=== PATIENT | female | born 1955 | race Caucasian/White ===

== ENCOUNTER 2016-12-05 23:47 | Inpatient (IN) ==
--- NOTE | 2016-12-06 00:58 | Emergency Department Note ---
Simon Wilkinson Manpreet, am scribing for, and in the presence of, Santy Arechiga MD 00:25 . Geni Wilkinson Hans, MD, personally performed the services described in this documentation, ascribed by Mauro Montes in my presence, and it is both accurate and complete . Arrival - Arrival Chief Complaint: Weakness ED Nursing Triage Note: Pt arrives via ems from [facility] for further eval of elevated labs and weakness since her heart cath on Wednesday. Pt states that she just has not been feeling well and has not been eating since she was sent home. Pt denies any pain at time of triage. Mode of Arrival: Stretcher Limitations: No Limitations Source: Patient Time Seen by Provider: 12/06/16 00:07 - History of Present Illness HPI Narrative: Pt is a 61 y/o female, with PMHx of HTN, CHF, CAD, TIA, and NIDDM, who is transferred from [facility] for further evaluation of weakness. Pt states she has not been feeling well recently. Pt also c/o lower Abd pain. Pt states she was told 10% of her kidneys were not working. Pt denies any N/V/D or any EtOH use. Pt reports of taking 4 tablets of ASA because she was not feeling well and increased urinary frequency. No other pains/complaints reported to the ED. Onset (ago): day(s) (12/02/16) Consistency: constant Severity: moderate Date of Last Menstrual Period: pm Allergies/Adverse Reactions: Allergies Allergy/AdvReac Type Severity Reaction Status Date / Time codeine AdvReac Vomiting Verified 10/25/14 13:16 diazepam [From Valium] AdvReac Unknown/Unable Verified 10/25/14 13:16 to obtain Home Medications: Home Medications Medication Instructions Recorded Confirmed Type Aspirin [Ecotrin] 81 mg PO DAILY 10/25/14 12/06/16 History Gabapentin 300 mg PO BID 12/28/15 12/06/16 History Cyanocobalamin (Vitamin B-12) 1 each PO DAILY 12/29/15 12/06/16 History [B-12] Atorvastatin [Lipitor] 80 mg PO BEDTIME #30 tablet 01/02/16 12/06/16 Rx Carvedilol [Coreg] 12.5 mg PO BID #60 tablet 01/02/16 12/06/16 Rx Clopidogrel [Plavix] 75 mg PO DAILY #30 tablet 01/02/16 12/06/16 Rx Metformin HCl 1,000 mg PO BID #0 01/02/16 12/06/16 Rx Amlodipine Besylate 10 mg PO DAILY 02/16/16 12/06/16 History Furosemide Tab [Lasix Tab] 80 mg PO DAILY 02/16/16 12/06/16 History Ipratropium Inhaler [Atrovent 2 puff INH QID PRN 02/16/16 12/06/16 History Inhaler] Lisinopril [Prinivil] 10 mg PO BID #60 tablet 02/20/16 12/06/16 Rx Albuterol Sulfate [Ventolin HFA] 2 puff INH Q4H PRN 12/02/16 12/06/16 History Benzonatate 100 mg PO TID PRN 12/02/16 12/06/16 History Budesonide/Formoterol 160-4.5 2 puff INH BID 12/02/16 12/06/16 History [Symbicort 160-4.5] Escitalopram [Lexapro] 10 mg PO DAILY 12/02/16 12/06/16 History Ipratropium Inhaler [Atrovent 2 puff INH Q6HR 12/02/16 12/06/16 History Inhaler] Metoprolol Tartrate 25 mg PO DAILY 12/02/16 12/06/16 History NIFEdipine [Nifedipine ER] 30 mg PO DAILY 12/02/16 12/06/16 History hydrALAZINE TAB [Apresoline Tab] 25 mg PO BID 12/02/16 12/06/16 History Review of System - Review of System 12 point system: reviewed and no additional remarkable complaints except as stated - Review of System Constitutional: Present: weakness, other ("Not feeling well"). Absent: chills, diaphoresis, fever Respiratory: Absent: cough, respiratory distress, wheezing Cardiovascular: Absent: chest pain, palpitations, dyspnea on exertion Gastrointestinal: Present: abdominal pain. Absent: nausea, vomiting Genitourinary female: Present: frequency. Absent: dysuria Musculoskeletal: Absent: arm pain, back pain Neurological: Present: weakness. Absent: headache, numbness, paresthesias Medical,Surgical,& Family Hx - Medical History Cardio: History of: CHF, CAD (previous stents to dLAD, mLAD, LCx/OM1 by Dr. Mat Wu.), Hypertension Psychological: History of: Depression Neurology: History of: TIA (PT STATES HAD "MINI STROKE"), Vertigo No history of: Seizures HEENT: History of: Eye Problem (left eye "runny") Endocrine: History of: Diabetes Mellitus (NIDDM) Respiratory: History of: Respiratory Problems (family states "has problems catching her breath") Gastrointestinal: History of: GI Problems (TAKES SIMETHICONE 125MG BID) - Surgical History Cardiac Surgeries: Sugical HX of: Cardiac Catheterization (stents placed) Thoracic Surgeries: Patient denies;: Lobectomy Neurologic Surgeries: Patient denies: Neurologic Surgery HEENT Surgeries: Surgical HX of: Eye Surgery (CATARACTS), Tonsilectomy & Adenoidectomy Abdominal Surgeries: Patient denies: Abdominal Surgery Reproductive Surgeries: Surgical HX of;: Section (Xs 2), Gynecologic Surgery, Hysterectomy Patient denies;: Genitourinary Surgery - Family History Family History: Reports;: Family Stroke (grandfather) - Social History Smoking Status: Unknown if ever smoked Frequency of Alcohol Use: None Type of Drug Use: None Exam Vital Signs: Vital Signs Temperature 98.9 F 12/05/16 23:47 Pulse Rate 59 L 12/05/16 23:47 Respiratory Rate 21 12/05/16 23:47 Blood Pressure 82/54 12/05/16 23:47 O2 Sat by Pulse Oximetry 91 L 12/05/16 23:47 - General General appearance: alert, in no apparent distress - Head Head exam: Present: atraumatic, normocephalic, normal inspection - Eye Eye exam: Present: normal appearance, PERRL, EOMI - ENT ENT exam: Present: normal exam, normal oropharynx, mucous membranes moist, TM's normal bilaterally - Neck Neck exam: Present: normal inspection, full ROM, trachea midline - Chest Chest inspection: Present: normal inspection, symmetric chest wall rise. Absent : tenderness - Respiratory Respiratory exam: Present: normal lung sounds bilaterally, wheezes. Absent: respiratory distress - Cardiovascular Cardiovascular exam: Present: regular rate, normal rhythm, normal heart sounds. Absent: murmur, rubs - Abdominal Exam Abdominal exam: Present: soft, tenderness (RUQ tenderness), normal bowel sounds , other (Abdominal brusing) - Extremities Exam Extremities exam: Present: normal inspection, full ROM. Absent: tenderness - Back Exam Back exam: Present: normal inspection, full ROM. Absent: tenderness - Neurological Exam Neurological exam: Present: alert, oriented X3, CN II-XII intact, reflexes normal - Psychiatric Psychiatric exam: Present: normal affect, normal mood - Skin Skin exam: Present: warm, dry, intact, normal color. Absent: pallor Course Course Narrative: This patient was evaluated with clinical exam and review of her outside hospital records. She has evidence of renal failure with creatinine 7.5 and potassium of 5.9. We ordered a repeat potassium here and also a Tylenol level given her history of Tylenol use and her elevated transaminases. A Dias catheter was placed in the ER. I discussed her care with the hospitalist on- call who agreed to come and see her for admission. Disposition Clinical Impression: Renal failure Case discussed with: patient Disposition: Still a Patient Condition: Stable Time of Disposition: 00:58
[2016-12-06] MEDS ORDERED: GLUCAGON 1 MG VIAL IM PRN (01:50)
[2016-12-06] MEDS ORDERED: DEXTROSE 50% 25 GM/50 ML SYRINGE IV PRN (01:50)
[2016-12-06] MEDS ORDERED: SODIUM CHLORIDE 0.9% 1,000 ML IV SCH (02:00)
[2016-12-06 02:01] LABS: Apearance,Urine CLOUDY (Clear); Bacteria,Urine Few /HPF (Few); Bilirubin,Urine Negative (Negative); Blood, Urine Negative (Negative); Glucose,Urine (UA) 50 mg/dL (Negative); Ketones,Urine Negative (Negative); Nitrite,Urine Negative (Negative); Protein,Urine 30 MG/DL; RBC,Urine 4 /HPF (0-4); Urine Color Amber (Yellow); Urine Specific Gravity 1.038 (1.001-1.035); Urine Urobilinogen < 2.0 EU/DL (0.2-1.0); WBC,Urine 2 /HPF (0-6)
[2016-12-06] MEDS ORDERED: ALBUTEROL/IPRATROPIUM 3 ML NEB RESP TX PRN (02:06)
[2016-12-06] MEDS ORDERED: SODIUM POLYSTYRENE SULFATE 15 GM/60 ML BOTTLE PO STA (02:07)
[2016-12-06] MEDS ORDERED: ONDANSETRON 4 MG/2 ML VIAL ONE (02:12)
[2016-12-06] MEDS ORDERED: MORPHINE 2 MG/1 ML SYRINGE ONE (02:12)
[2016-12-06] MEDS ORDERED: KETOROLAC 30 MG/1 ML VIAL ONE (02:12)
--- NOTE | 2016-12-06 02:39 | Hospitalist History & Physical ---
<Kitty Elena - Last Filed: 12/06/16 02:13> Assessment and Plan - Time spent with patient Time spent with patient: Greater than 30 minutes (1) Acute renal failure Status: Acute Assessment and plan: Admit to hospitalist services. Consult Nephrology. Consult Cardiology. NS at 125 ml/hr x 1L. Renal US. Urine osmolality, creatinine, eosinophil, urea and sodium. Recheck CMP in AM. Hold metformin and BP meds. Current Visit: Yes (2) Hyperkalemia Status: Acute Assessment and plan: Consult Nephrology. Consult Cardiology. Monitored Bed. EKG. Kayexalate 15 gm PO x 1 dose. Recheck CMP in AM. Current Visit: Yes (3) Elevated liver enzymes Status: Acute Assessment and plan: ALT 769. AST 377. CT shows "subtle nodular contour of the liver." Consult GI. Hepatitis panel. RUQ ultrasound. Ammonia level. Recheck CMP in AM. Current Visit: Yes (4) COPD (chronic obstructive pulmonary disease) Status: Acute Assessment and plan: Currently c/o shortness off breath. CXR. O2 per unit protocol. DuoNebs q4 hours. Restart home dose Symbicort. Current Visit: Yes (5) Diabetes mellitus Status: Chronic Assessment and plan: Diabetic diet. Accuchecks ACHS. Low dose SSI ACHS. Hold metformin. Recheck CMP in AM. Current Visit: No Qualifiers: Diabetes mellitus type: type 2 Diabetes mellitus complication status: without complication Diabetes mellitus intermodal dispatcher insulin use: without intermodal dispatcher use Qualified Code(s): E11.9 - Type 2 diabetes mellitus without complications (6) Hypertension Status: Chronic Assessment and plan: BP stable for now. Hold home BP meds. Continue to monitor. Current Visit: No Qualifiers: Hypertension type: essential hypertension Qualified Code(s): I10 - Essential (primary) hypertension (7) Diarrhea Status: Acute Assessment and plan: Stool culture, c-diff and leukocytes. Current Visit: Yes (8) Anemia Status: Acute Assessment and plan: Occult blood stool. Check iron, TIBC, ferritin, folate and B-12. Recheck CBC in AM. Current Visit: Yes (9) Shortness of breath Status: Chronic Assessment and plan: Treatment as above for COPD. Unable to perform chest CT for PE due to acute renal failure. Venous stasis discoloration of left lower extremity noted. Obtain BLE venous duplex to check for DVTs. Current Visit: No (10) History of coronary artery stent placement Status: Acute Assessment and plan: Consult cardiology. Continue ASA and Plavix. Current Visit: Yes (11) DVT prophylaxis Status: Acute Assessment and plan: Heparin 500 SQ every 8 hours. Current Visit: Yes History of Present Illness Chief complaint: Acute Renal Failure History of present illness: Ms. Quintana is a 61 year old female with a history of FL with stent placement , HTN, DM, CHF and COPD who was transferred from [facility] for acute renal failure. Ms. Quintana originally presented to [facility] with complaints of low back/pelvic pain and shortness of breath. Her work-up there was significant for ceatinine of 7.5, ALT of 769, AST of 377, hematocrit and hemoglobin of 29.8 and 8.9 respectively, Na of 130, K of 5.9, and WBC of 11.2. Previous labs performed on 03/04/16 showed a creatinine of 1.7. CT abd/pelvis wo contrast showed "Partial image cardiomegaly, trace pericardial effusion, pleural effusion , ascites, and diffuse subcutaneous infiltration. Passive atelectasis versus consolidation at right and left lower lobe adjacent to pleural effusions. Subtle nodular contour of the liver suggested...Likely retained renal cortical contrast with minimal intravascular contrast. Radiodense material within the gall bladder lumen, may represent vicarious excretion of contrast shows sludge, less likely discrete cholelithiasis. No ductal dilation..." Ms. Quintana is 4 days s/p cardiac catheterization and 3 days s/p CT of BLEs with contrast. She admits to not drinking much since the CT scan though she was instructed to do so. She is currently awake, alert and oriented and breathing more at ease while on oxygen, which she wears PRN at home. Her only discomfort at this time is due to placement of a urinary catheter. Hospitalist services were consulted, and the patient will be admitted to a monitored bed for further evaluation and management. Home Medications Medication Instructions Recorded Confirmed Type Aspirin [Ecotrin] 81 mg PO DAILY 10/25/14 12/06/16 History Gabapentin 300 mg PO BID 12/28/15 12/06/16 History Cyanocobalamin (Vitamin B-12) 1 each PO DAILY 12/29/15 12/06/16 History [B-12] Atorvastatin [Lipitor] 80 mg PO BEDTIME #30 tablet 01/02/16 12/06/16 Rx Carvedilol [Coreg] 12.5 mg PO BID #60 tablet 01/02/16 12/06/16 Rx Clopidogrel [Plavix] 75 mg PO DAILY #30 tablet 01/02/16 12/06/16 Rx Metformin HCl 1,000 mg PO BID #0 01/02/16 12/06/16 Rx Amlodipine Besylate 10 mg PO DAILY 02/16/16 12/06/16 History Furosemide Tab [Lasix Tab] 80 mg PO DAILY 02/16/16 12/06/16 History Ipratropium Inhaler [Atrovent 2 puff INH QID PRN 02/16/16 12/06/16 History Inhaler] Lisinopril [Prinivil] 10 mg PO BID #60 tablet 02/20/16 12/06/16 Rx Albuterol Sulfate [Ventolin HFA] 2 puff INH Q4H PRN 12/02/16 12/06/16 History Benzonatate 100 mg PO TID PRN 12/02/16 12/06/16 History Budesonide/Formoterol 160-4.5 2 puff INH BID 12/02/16 12/06/16 History [Symbicort 160-4.5] Escitalopram [Lexapro] 10 mg PO DAILY 12/02/16 12/06/16 History Ipratropium Inhaler [Atrovent 2 puff INH Q6HR 12/02/16 12/06/16 History Inhaler] Metoprolol Tartrate 25 mg PO DAILY 12/02/16 12/06/16 History NIFEdipine [Nifedipine ER] 30 mg PO DAILY 12/02/16 12/06/16 History hydrALAZINE TAB [Apresoline Tab] 25 mg PO BID 12/02/16 12/06/16 History Allergies Allergy/AdvReac Type Severity Reaction Status Date / Time codeine AdvReac Vomiting Verified 10/25/14 13:16 diazepam [From Valium] AdvReac Unknown/Unable Verified 10/25/14 13:16 to obtain Medical,Surgical,& Family Hx - Medical History Cardio: History of: CHF, CAD (previous stents to dLAD, mLAD, LCx/OM1 by Dr. Mat Wu.), Hypertension, [place] Psychological: History of: Depression Neurology: History of: TIA (PT STATES HAD "MINI STROKE"), Vertigo No history of: Seizures HEENT: History of: Eye Problem (left eye "runny") Endocrine: History of: Diabetes Mellitus (NIDDM) Respiratory: History of: COPD, Respiratory Problems (family states "has problems catching her breath") Gastrointestinal: History of: GI Problems (TAKES SIMETHICONE 125MG BID) - Surgical History Cardiac Surgeries: Sugical HX of: Cardiac Catheterization (stents placed) Thoracic Surgeries: Patient denies;: Lobectomy Neurologic Surgeries: Patient denies: Neurologic Surgery HEENT Surgeries: Surgical HX of: Eye Surgery (CATARACTS), Tonsilectomy & Adenoidectomy Abdominal Surgeries: Patient denies: Abdominal Surgery Reproductive Surgeries: Surgical HX of;: Section (Xs 2), Gynecologic Surgery, Hysterectomy Patient denies;: Genitourinary Surgery - Family History Family History: Reports;: Family Stroke (grandfather) - Social History Smoking Status: Former smoker (quit 1 year ago) Frequency of Alcohol Use: None Type of Drug Use: None Marital Status: Lives With:: Roommate Functional capacity: independent ambulation 12 point system: reviewed and no additional remarkable complaints except as stated - Constitutional Constitutional: Absent: chills, fever(s), lethargy, malaise, weakness - EENT Eyes: Absent: blurry vision, diplopia, loss of vision Ears: Absent: decreased hearing, ear discharge, ear pain Nose, mouth and throat: Absent: headache(s), nasal congestion, sore throat - Cardiovascular Cardiovascular: Present: dyspnea, edema. Absent: chest pain at rest, chest pain with activity, orthopnea, palpitations - Respiratory Respiratory: Present: dyspnea. Absent: cough, wheezing - Gastrointestinal Gastrointestinal: Present: diarrhea. Absent: nausea, vomiting - Genitourinary Genitourinary: Absent: dysuria, urinary frequency - Musculoskeletal Musculoskeletal: Present: back pain. Absent: muscle weakness, myalgias - Neurological Neurological: Absent: dizziness, numbness, paresthesias, syncope - Psychiatric Psychiatric: Absent: anxiety, depression - Endocrine Endocrine: Absent: cold intolerance, polydipsia, polyphagia, polyuria - Hematologic/Lymphatic Hematologic/Lymphatic: Absent: easy bleeding, easy bruising Exam - Constitutional Vitals: Period Temp Pulse Resp BP Sys/Quach Pulse Ox Last 24 Hr 98.4 F-98.9 F 54-59 18-21 82-82/54-54 91 General appearance: mild distress - Head Head exam: Present: normocephalic, atraumatic - Eye Eye exam: Present: EOMI Pupils: Present: MARY JANE - ENT ENT exam: Present: normal external ear exam - Neck Neck exam: Present: normal inspection. Absent: lymphadenopathy - Respiratory Respiratory exam: Present: clear to auscultation bilaterally - Cardiovascular Cardiovascular exam: Present: bradycardia. Absent: diastolic murmur, gallop, systolic murmur - GI/Abdominal GI/Abdominal exam: Present: normal bowel sounds, distended, soft. Absent: guarding, tenderness, rebound - Extremities Exam Extremities exam: Present: other (Hyperpigmentation of left lower leg and ankle. ) - Back Exam Back exam: Present: normal inspection - Neurological Exam Neurological exam: Present: alert, oriented X3, CN II-XII intact (grossly) - Psychiatric Psychiatric exam: Present: normal affect, normal mood - Skin Skin exam: Present: warm, dry, other (Hyperpigmentation of left lower leg and ankle. ) Results - Labs CBC & BMP: 12/06/16 00:45 Lab Results: I have reviewed the past 24 hour labs <Brody Gutierrez - Last Filed: 12/06/16 07:22> History of Present Illness History of present illness: Ms. Quintana is a 61 year old female Exam - Constitutional Vitals: Period Temp Pulse Resp BP Sys/Quach Pulse Ox Last 24 Hr 97.5 F-98.9 F 54-84 18-22 82-127/54-64 91-98 Results - Labs CBC & BMP: 12/06/16 06:20 12/06/16 06:20 - Impressions Agree with documentation. Please see event note for my H&P information.
--- NOTE | 2016-12-06 02:41 | Event Note ---
Patient seen and examined. Please see H&P for additional details. Briefly, patient is a 61 yo female who presents from [facility] for weakness and decreased oral intake since her cardiac catherization on 12/02/16. She also had a CTA with bilateral LE runoff on 12/03/16. Her creatinine at that time was 1.10. Currently , it is 7.5. She has been having some lower abdominal pain for the past day. Her UOP has been decreased since the heart procedure and CT angiogram. She notes some nausea but denies any vomiting as well as dysuria. She has been having some diarrhea along with subjective fevers but no chills. She has been taking doxycycline for the past few days for a tick bite. She denies any metallic oral taste/SOB/CP/cough/wheezing. Vitals reviewed. O2 saturations are 91-94% on 4L. HRs are in the mid to upper 50s. Patient is lethargic (it was reported she received morphine and zofran at outside facility) but she is completely oriented. Cardiopulmonary exam is significant for unlabored respirations, decreased breath sounds at the bases, otherwise, clear lung sounds, and heart is bradycardic. She has no LE swelling or asterixis. Abdomen is obese, soft with positive bowel sounds, non distended , and non tender. Labs from [facility] reviewed. CTAP (without contrast) report from [facility] reviewed as well. Active Issues: 1. Acute on CKD: creatinine on 12/02/16 was 1.1. At [facility], it is 7.5. Culprits include recent contrast from [facility] and CT angiogram, lisinopril/aldactone/lasix use, decreased oral intake and diarrhea. She is also on doxycycline, and although it is not known for causing AIN, will go ahead and check for urine eosinophils. Will also obtain renal ultrasound, obtain urine lytes to calculate FeUrea (on lasix). Start gentle IVFs with close monitoring of volume and respiratory status. Consult nephrology. 2. ASCAD s/p prior stent placements to LAD and left circumflex. Recent LHC on for FUNG and abnormal stress test. Will consult cardiology. Obtain EKG. Continue asa and plavix. 3. Bradycardia: Mild. could be 2nd to coreg or hyperkalemia although mild. Treat hyperkalemia. Check TSH and magnesium. Monitor bradycardia. 4. Transaminitis: Patient with elevated LFTs on labs from [facility]. Ascites was reported on imaging. Will repeat LFTs, check abdominal ultrasound, and consult GI. Hold statin therapy. 5. Diarrhea: will check for c. diff given antibiotic use. 6. Hypoxia: Patient with history of tobacco use. She used to smoke at least 1ppd x 40 years and quit one year ago. Suspect hypoxia 2nd to COPD and heart failure. Curent chest x-ray showed enlarged heart with bilateral effusions, L>R along with pulmonary vascular congestion and cephalization. Continue oxygen/ bronchodilator/inhaled steord therapy. Follow recommedations by cardiology. May need pulmonary consult. Will check LE dopplers for DVTs. 7. Suspected KOBY: patient states that she was referred to sleep medicine but was unable to afford it. Will seek assistance from case management. 8. Anemia: baseline HCT is 31-36. HCT on 10/19 was 29. Per notes, EGD/colo normal. Will start with basic lab workup. 9. Comorbid conditions: h/o DM (hba1c: 7.6, 12/19), dyslipidemia, ASCAD, TIA, HTN , CHF (Echo: 11/19: EF: 55%, LVH), obesity, PVD: will hold metformin,statin, bp agents. Continue rest of home medications. DVT prophalaxis. The plan of care may be modified as more information becomes available.
[2016-12-06 03:16] LABS: Creatinine,Urine Random 134 MG/DL
[2016-12-06 05:51] LABS: Osmolality,Urine 311 MOSM/KG (50-1400)
[2016-12-06 06:32] LABS: Basophils # 0.1 10*3/uL (0.0-0.2); Basophils % 0.6 % (0.0-0.8); Eosinophils # 0.1 10*3/uL (0.0-0.87); Eosinophils % 0.6 % (0.00-10.9); Hematocrit 30.9 VOL% (35.7-47.0); Hemoglobin 9.2 GM/DL (12.0-16.0); Immature Granulocytes % 0.8 %; Immature Granulocytes Absolute 0.08 #; Lymphocytes # 1.5 10*3/uL (1.4-4.0); Lymphocytes % 14.3 % (21.3-54.2); Mean Corpuscular HGB Conc 29.8 GM/DL (32-36); Mean Corpuscular Hemoglobin 24 PG (27-34); Mean Corpuscular Volume 81.5 FL (87-102); Mean Platelet Volume 10.3 FL (9.6-12.0); Monocytes # 0.7 10*3/uL (0.11-0.8); Monocytes % 6.4 % (1.7-12.7); Neutrophils % 77.3 % (38.7-73.9); Platelet Count 314 T/CUMM (130-400); Red Blood Count 3.79 MC/CUMM (3.8-5.5); Red Cell Distribution Width 17.2 % (9.3-17.3); White Blood Count 10.3 T/CUMM (4-12)
[2016-12-06 07:02] LABS: Bilirubin,Total 0.9 MG/DL (0.2-1.0); Calcium 8.3 MG/DL (8.5-10.1); Osmolality,Calculated 283.8 MOS/KG (273-304); Potassium 5.4 MMOL/L (3.5-5.1); Total Protein 6.1 G/DL (6.4-8.3)
[2016-12-06 07:04] LABS: % Iron Saturation 6.5 % (18-50)
[2016-12-06] MEDS: HEPARIN 5,000 UNIT/1 ML VIAL SUBCUT SCH ×3 (07:16→21:15)
[2016-12-06 07:49] LABS: Folate 18.1 NG/ML (5.4-24.0); Vitamin B12 > 2000 PG/ML (211-911)
[2016-12-06 08:03] LABS: Hepatitis A Ab IgM Quant 0.09 Index; Hepatitis A Ab IgM Result Negative (Negative); Hepatitis B Core IgM Quant 0.14 Index; Hepatitis B Core IgM Result Negative (Negative); Hepatitis B Surface Ag Quant 0.54 Index; Hepatitis B Surface Ag Result Negative (Negative)
[2016-12-06] MEDS: INSULIN LISPRO 100 UNIT/ML SUBCUT SCH ×4 (09:09→21:14)
[2016-12-06] MEDS: ASPIRIN EC 81 MG TABLET PO SCH (09:10)
[2016-12-06] MEDS: CLOPIDOGREL 75 MG TABLET PO SCH (09:10)
[2016-12-06] MEDS: BUDESONIDE/FORMOTEROL 160-4.5 INHALER 6 GM INH SCH ×2 (09:10→21:15)
--- NOTE | 2016-12-06 10:35 | Event Note ---
Pt was seen and personally examined by me. H and P and labs, imaging reviewed. Questions answered. Pt hungry now and was able to tolerate breakfast. Cont plan as already delineated. I will be away several days. One of my associates will follow in my absence.
--- NOTE | 2016-12-06 11:07 | XRay Report ---
Portable chest December 06, 2016 at 0210 hours Indication: Shortness of breath Comparison images dated December 02, 2016 Findings: Heart remains enlarged. Persistent interstitial coarsening with slightly improved pleural and parenchymal densities within the lung bases. No acute osseous abnormalities. Visualized upper abdomen is unremarkable. Impression: 1. Persistent interstitial edema pattern 2. Mildly improved pleural and parenchymal opacities partially silhouetting the hemidiaphragms PROCEDURE INTERPRETED AT [facility] DEPARTMENT OF RADIOLOGY Final Report Signed by: Leo Damico
--- NOTE | 2016-12-06 11:09 | Gastrointestinal Consult Note ---
Assessment and Plan - Time spent with patient Time spent with patient: Greater than 30 minutes (1) Elevated liver enzymes Status: Acute Current Visit: Yes (2) Anemia Status: Acute Assessment and plan: PLEASE NOTE -- automatic citation of patient information is unavoidable in this electronic note. I have made a reasonable effort to review the information cited , but it is not a part of my evaluation, impression, or recommendation unless specifically discussed in the dictated text that follows. As well, voice recognition software was used in the creation of this clinical note. Reasonable effort was made to identify and correct gross errors. Despite proofreading, errors in incinerator plant laborer may be present, including nonsense verbiage at times. If you encounter such an error, please contact me at for discussion and correction. -- Dr. Pelaez Chief complaint/Consult Question: elevated liver associated enzymes Consult requested by: Matt History of present illness: This is a new patient, a 61 y/o morbidly obese woman who underwent cardiac catheterization on 12/02/16 who presented with weakness and decreased oral intake since that time. Has been having some intermittent loose stools, but states she is only having one brown bowel movement per day. No melena, no hematochezia, no abdominal pain. Has been taking doxycycline for the past 3 days for tick bite. No personal history of known liver disease, denies previously being told her liver enzymes are elevated. Unknown family history as she was adopted. No history of prior jaundice or acute hepatitis. No IV or snorting drug use in the past. No tattoos. Possible blood transfusions in the and 90s when her kids were born with , but she is unsure. Has had unprotected sex in the past, not with sex workers. Previously heavy drinker, from approximately [id number] she was drinking a 12 pack of beer per day, quit in 1999 completely. Over-the- counter supplements included diet capsule which she was taking twice daily starting about 6 months ago, but stopped last week when she started feeling poorly. Has been noticing fluid retention since her heart attack one year ago, but denies fevers, chills, weight loss, change in her memory, day night reversal , slurred speech. States that for the last 3 months she has had progressive abdominal swelling, but denies abdominal pain. Left ventriculogram done a few days ago during left heart cath revealed preserved ejection fraction of 60%. However, patient with elevated LV end-diastolic pressure. GI review of systems included: heartburn, regurgitation, early satiety, dysphagia, odynophagia, abdominal pain, nausea, vomiting, hematemesis, weight loss, weight gain, fever, chills, fatigue, decreased appetite, diarrhea, constipation, hematochezia, melena, bloating, malodorous flatus, anal pain, or NSAID use, and was negative except as noted above. REVIEW OF SYSTEMS: Complete other review of systems negative except as noted in the HPI extreme sleepiness. Outpatient medications: Personally reviewed Includes dietary capsule, for the last 6 months, twice daily, stopped 1 week ago Inpatient medications: Reviewed Past Medical History: Reviewed Social history: Quit smoking tobacco one year ago, prior to [place]. Prior heavy beer drinking, 12 pack per day for approximately 30 years, quit in 1999. Family history: Family history is unknown as the patient was adopted PHYSICAL EXAMINATION: CONSTITUTIONAL: Vital signs reviewed as documented above. In no acute distress. Nontoxic-appearing, but. Patient is very drowsy and difficult to stay awake during my interview, although while awake is responding normally EYES: Anicteric conjunctiva. Extra-ocular movements are intact and symmetric. EARS: Able to hear speech at conversational volume level, no external trauma/ masses. MOUTH: No oral/mouth lesions or ulcers. NECK: No masses or crepitus. Thyroid is of normal size and symmetric. HEART: Regular rate, regular rhythm LUNGS:. No increased work of breathing or accessory muscle use. GI/ABDOMEN: Morbidly obese abdomen, soft, nontender to palpation, no rebound tenderness, nondistended but difficult to assess based on obesity, no rigidity. No palpable mass. No appreciable hepatosplenomegaly exam limited by obesity. SKIN: No rash on face, arms, or hands. No palpable lesions MUSCULOSKELETAL: Laying in bed comfortably, muscle tone appears normal without any abnormal movements. PSYCH: Normal affect. Alert and oriented to person, place, and time. NEURO: No slow or slurred speech, negative asterixis Laboratory: Personally reviewed CBCWBC 10.3, hemoglobin 9.2, MCV 81.5, platelets 314 Iron 21, iron sat 6.5%, TIBC 325, ferritin 102 Liver associated enzymesAST 323, ALT 668, alk phos 119, total bilirubin less than 1 BNP 953 Albumin 3 B12 greater than 2000, folate 18 TSH 2.1, free T4 1.12 Acetaminophen low at 2.8 Hepatitis A IgM antibody negative, hepatitis B surface antigen negative, hepatitis C IgM antibody negative Radiology: Personally reviewed reports Right upper quadrant ultrasound has been 12/06/2016 done but not officially read Left and right heart cath results reviewed from 12/02/16. No recurrent acute coronary thrombus, stents patent, normal EF, elevated diastolic pressure. Mild persistent disease in distal RCA branches. CT angiogram done 12/03/16 with mild calcified atheromatous disease of the aortoiliac system. Celiac origin, SMA, solitary bilateral renal and MIKAEL origins are patent. No significant common iliac or external iliac stenosis on either side. Both femoral arteries are widely patent. Right SFA with 75% stenotic lesion noted. Left SFA similar but less severe disease with more localized stenosis 50-75%. Abdomen with pleural effusions present, heart minimally enlarged, bibasilar atelectasis. Mild pulmonary arterial prominence of the lung bases. Contrast reflux into the IVC and hepatic veins noted. Liver has a slightly nodular contour with no focal lesion identified. Slightly enlarged with the right lobe extending well below the costal margin. Nodular liver contour with hepatomegaly is reported as likely sequela from chronic elevated hepatic venous pressures. Contrast in the gallbladder. Gallbladder wall thickening noted, upwards of 8 mm. Probable nonobstructing kidney stones in the right noted, largest 3 mm. 15 mm lymph node at the zehra hepatis adjacent to the body of the pancreas that is minimally enlarged. No other lymphadenopathy seen. Subcentimeter retroperitoneal nodes are present. No bowel obstruction. Rectosigmoid: Unremarkable except for presence of diverticula. Assessments: #Abnormal liver associated enzymes. No prior labs for comparison to see if this is acute or chronic. Acute elevation can be secondary to diastolic heart failure exacerbation, ischemic hit, renal failure with relative stasis of blood flow through the liver with relative ischemia, acute viral panel negative. Tylenol negative. Patient denies any alcohol intake. Could also be related to acute decompensation of patient is cirrhotic, which is suggested by chronic prior alcohol use, possible contribution of significant fatty liver disease. Significant elevation in ALT suggest possible chronic viral hepatitis which has not yet been evaluated. No evidence of stones on recent imaging for obstructive etiology, which is also less likely in the setting of normal bilirubin. No evidence of hemochromatosis with low iron sat. Very likely related to diet supplement that she has been taking aggressively for the last 6 months, though in the setting of other chronic comorbidities may have only exacerbated. #HESHAM on CKD. See primary provider note for good broad differential. ATN related to high volume contrast load both from the cardiac catheterization, LV gram, as well as CT angiogram done the next day are very likely contributors. However, is related to the liver disease, if this patient is cirrhotic, could be secondary to liver decompensation. This is still unlikely at this point based on the overall clinical picture. #Iron deficiency anemia. With recent EGD and colonoscopy last year, and no evidence of overt GI bleeding or clinical evidence of malabsorption, although patient has been deficient in B12, vitamin D in the past. #nodular contour of the liver, enlarged: This pattern is usually most consistent with possible cirrhosis, but enlargement secondary to heart failure with blood flow back up. Budd-Chiari could also be considered, but no lesion seen on recent CT angiogram. SOS is a much more rare syndrome, especially in the setting of patient's cardiac disease. No clinical evidence of chronic decompensation as noted above, normal platelets. No varices on recent EGD. #Other specified counseling -- The patient was seen for greater than 30 minutes. The patient was counseled for greater than 50% of this time regarding differential diagnosis, likely diagnosis, diagnostic and therapeutic alternatives, risks/benefits/alternatives of medications and procedures, and plan of care generally. The patient expressed understanding and wishes to proceed. Recommendations: -Follow-up abdominal ultrasound, with full comment on vascular flow within the hepatic and portal veins. -If ascites is present, can consider radiology guided sampling to determine whether this is related to cirrhosis versus secondary to heart failure. -We will send chronic hepatitis B, chronic hepatitis C, HIV, RPR, ceruloplasmin , ILANA, ASMA, AMA, -primary team to manage likely heart failure/renal failure symptoms and volume issues -STOP the diet supplement immediately. Do not restart. -No acute indication for liver biopsy at this time -Continue to avoid alcohol -will send panel for other absorptive deficiencies for iron including celiac, anti-IF, anti-parietal cell -Primary provider to consider other sources of iron loss, or poor iron intake Radha Pelaez MD, [facility] STAFF SURVEY DIRECTOR Current Visit: Yes History of Present Illness History of present illness: Ms. Quintana is a 61 year old female Home Medications Medication Instructions Recorded Confirmed Type Aspirin [Ecotrin] 81 mg PO DAILY 10/25/14 12/06/16 History Gabapentin 300 mg PO BID 12/28/15 12/06/16 History Cyanocobalamin (Vitamin B-12) 1 each PO DAILY 12/29/15 12/06/16 History [B-12] Atorvastatin [Lipitor] 80 mg PO BEDTIME #30 tablet 01/02/16 12/06/16 Rx Carvedilol [Coreg] 12.5 mg PO BID #60 tablet 01/02/16 12/06/16 Rx Clopidogrel [Plavix] 75 mg PO DAILY #30 tablet 01/02/16 12/06/16 Rx Metformin HCl 1,000 mg PO BID #0 01/02/16 12/06/16 Rx Amlodipine Besylate 10 mg PO DAILY 02/16/16 12/06/16 History Furosemide Tab [Lasix Tab] 80 mg PO DAILY 02/16/16 12/06/16 History Ipratropium Inhaler [Atrovent 2 puff INH QID PRN 02/16/16 12/06/16 History Inhaler] Lisinopril [Prinivil] 10 mg PO BID #60 tablet 02/20/16 12/06/16 Rx Albuterol Sulfate [Ventolin HFA] 2 puff INH Q4H PRN 12/02/16 12/06/16 History Benzonatate 100 mg PO TID PRN 12/02/16 12/06/16 History Budesonide/Formoterol 160-4.5 2 puff INH BID 12/02/16 12/06/16 History [Symbicort 160-4.5] Escitalopram [Lexapro] 10 mg PO DAILY 12/02/16 12/06/16 History Ipratropium Inhaler [Atrovent 2 puff INH Q6HR 12/02/16 12/06/16 History Inhaler] Metoprolol Tartrate 25 mg PO DAILY 12/02/16 12/06/16 History NIFEdipine [Nifedipine ER] 30 mg PO DAILY 12/02/16 12/06/16 History hydrALAZINE TAB [Apresoline Tab] 25 mg PO BID 12/02/16 12/06/16 History Allergies Allergy/AdvReac Type Severity Reaction Status Date / Time codeine AdvReac Vomiting Verified 10/25/14 13:16 diazepam [From Valium] AdvReac Unknown/Unable Verified 10/25/14 13:16 to obtain Medical,Surgical,& Family Hx - Medical History Cardio: History of: CHF, CAD (previous stents to dLAD, mLAD, LCx/OM1 by Dr. Mat Wu.), Hypertension, [place] Psychological: History of: Depression Neurology: History of: TIA (PT STATES HAD "MINI STROKE"), Vertigo No history of: Seizures HEENT: History of: Eye Problem (left eye "runny") Endocrine: History of: Diabetes Mellitus (NIDDM) Respiratory: History of: COPD, Respiratory Problems (family states "has problems catching her breath") Gastrointestinal: History of: GI Problems (TAKES SIMETHICONE 125MG BID) - Surgical History Cardiac Surgeries: Sugical HX of: Cardiac Catheterization (stents placed) Thoracic Surgeries: Patient denies;: Lobectomy Neurologic Surgeries: Patient denies: Neurologic Surgery HEENT Surgeries: Surgical HX of: Eye Surgery (CATARACTS), Tonsilectomy & Adenoidectomy Abdominal Surgeries: Patient denies: Abdominal Surgery Reproductive Surgeries: Surgical HX of;: Section (Xs 2), Gynecologic Surgery, Hysterectomy Patient denies;: Genitourinary Surgery - Family History Family History: Reports;: Family Stroke (grandfather) - Social History Smoking Status: Former smoker (quit 1 year ago) Frequency of Alcohol Use: None Type of Drug Use: None Exam - Constitutional Vitals: Period Temp Pulse Resp BP Sys/Quach Pulse Ox Last 24 Hr 97.0 F-98.9 F 54-84 18-22 82-127/52-64 90-98 Results - Labs CBC & BMP: 12/06/16 06:20 12/06/16 06:20
--- NOTE | 2016-12-06 11:32 | Nephrology Consult Note ---
History of Present Illness Chief complaint: ARF History of present illness: Ms. Quintana is a 61 year old female who underwent cardiac cath on 12/02/2016. She had CTA of the abdominal aorta and lower extremities the following day. She presented to [facility] yesterday with generalized weakness and abdominal pain. She was noted to have acute renal failure and hyperkalemia. Potassium 5.9, creatinine 7.5. Her creatinine was 1.1 on 2016 Home Medications Medication Instructions Recorded Confirmed Type Aspirin [Ecotrin] 81 mg PO DAILY 10/25/14 12/06/16 History Gabapentin 300 mg PO BID 12/28/15 12/06/16 History Cyanocobalamin (Vitamin B-12) 1 each PO DAILY 12/29/15 12/06/16 History [B-12] Atorvastatin [Lipitor] 80 mg PO BEDTIME #30 tablet 01/02/16 12/06/16 Rx Carvedilol [Coreg] 12.5 mg PO BID #60 tablet 01/02/16 12/06/16 Rx Clopidogrel [Plavix] 75 mg PO DAILY #30 tablet 01/02/16 12/06/16 Rx Metformin HCl 1,000 mg PO BID #0 01/02/16 12/06/16 Rx Amlodipine Besylate 10 mg PO DAILY 02/16/16 12/06/16 History Furosemide Tab [Lasix Tab] 80 mg PO DAILY 02/16/16 12/06/16 History Ipratropium Inhaler [Atrovent 2 puff INH QID PRN 02/16/16 12/06/16 History Inhaler] Lisinopril [Prinivil] 10 mg PO BID #60 tablet 02/20/16 12/06/16 Rx Albuterol Sulfate [Ventolin HFA] 2 puff INH Q4H PRN 12/02/16 12/06/16 History Benzonatate 100 mg PO TID PRN 12/02/16 12/06/16 History Budesonide/Formoterol 160-4.5 2 puff INH BID 12/02/16 12/06/16 History [Symbicort 160-4.5] Escitalopram [Lexapro] 10 mg PO DAILY 12/02/16 12/06/16 History Ipratropium Inhaler [Atrovent 2 puff INH Q6HR 12/02/16 12/06/16 History Inhaler] Metoprolol Tartrate 25 mg PO DAILY 12/02/16 12/06/16 History NIFEdipine [Nifedipine ER] 30 mg PO DAILY 12/02/16 12/06/16 History hydrALAZINE TAB [Apresoline Tab] 25 mg PO BID 12/02/16 12/06/16 History Allergies Allergy/AdvReac Type Severity Reaction Status Date / Time codeine AdvReac Vomiting Verified 10/25/14 13:16 diazepam [From Valium] AdvReac Unknown/Unable Verified 10/25/14 13:16 to obtain Medical,Surgical,& Family Hx - Medical History Cardio: History of: CHF, CAD (previous stents to dLAD, mLAD, LCx/OM1 by Dr. Mat Wu.), Hypertension, [place] Psychological: History of: Depression Neurology: History of: TIA (PT STATES HAD "MINI STROKE"), Vertigo No history of: Seizures HEENT: History of: Eye Problem (left eye "runny") Endocrine: History of: Diabetes Mellitus (NIDDM) Respiratory: History of: COPD, Respiratory Problems (family states "has problems catching her breath") Gastrointestinal: History of: GI Problems (TAKES SIMETHICONE 125MG BID) - Surgical History Cardiac Surgeries: Sugical HX of: Cardiac Catheterization (stents placed) Thoracic Surgeries: Patient denies;: Lobectomy Neurologic Surgeries: Patient denies: Neurologic Surgery HEENT Surgeries: Surgical HX of: Eye Surgery (CATARACTS), Tonsilectomy & Adenoidectomy Abdominal Surgeries: Patient denies: Abdominal Surgery Reproductive Surgeries: Surgical HX of;: Section (Xs 2), Gynecologic Surgery, Hysterectomy Patient denies;: Genitourinary Surgery - Family History Family History: Reports;: Family Stroke (grandfather) - Social History Smoking Status: Former smoker (quit 1 year ago) Frequency of Alcohol Use: None Type of Drug Use: None Review of Systems 12 point system: reviewed and no additional remarkable complaints except as stated Exam - Vital Signs Vital signs: Period Temp Pulse Resp BP Sys/Quach Pulse Ox Last 24 Hr 97.0 F-98.9 F 54-84 18-22 82-127/52-64 90-98 Exam: Gen.: Alert and oriented x3. ENT: Pupils equal round reactive to light. EOMs intact. Mucous membranes moist. Neck: Supple. No JVD or bruit. Cardiovascular: Regular rate and rhythm. No murmur rub or gallop Lungs: Clear Abdomen: Soft. Nontender. Positive bowel sounds. No organomegaly Extremities: 1+ edema Results - Labs CBC & BMP: 12/06/16 06:20 12/06/16 06:20 Assessment and Plan (1) Acute renal failure Status: Acute Assessment and plan: 61-year-old woman with: * ARF. This is secondary to IV contrast received on consecutive days. This is exacerbated by HERMILA inhibitor. She is also on diuretics and has been drinking little over the past few days. Metformin should also be discontinued. Noncontrast CT shows residual contrast still present. Monitor intake and output closely * Hyperkalemia * Elevated liver enzymes. Possible cirrhosis. * Diabetes mellitus * Hypertension * Sleep apnea * CAD Current Visit: Yes (2) Anemia Status: Acute Current Visit: Yes (3) Elevated liver enzymes Status: Acute Current Visit: Yes (4) Hyperkalemia Status: Acute Current Visit: Yes (5) Congestive heart failure Problem details: EF 60% per echo 12/29/15 Status: Acute Current Visit: No Qualifiers: Congestive heart failure type: diastolic Congestive heart failure chronicity: acute on chronic Qualified Code(s): I50.33 - Acute on chronic diastolic (congestive) heart failure (6) Essential hypertension Status: Acute Current Visit: No (7) Diabetes mellitus Status: Chronic Current Visit: No Qualifiers: Diabetes mellitus type: type 2 Diabetes mellitus complication status: without complication Diabetes mellitus shelter insulin use: without shelter use Qualified Code(s): E11.9 - Type 2 diabetes mellitus without complications (8) KOBY (obstructive sleep apnea) Status: Ruled-out Current Visit: No
--- NOTE | 2016-12-06 12:49 | Cardiology Consult Note ---
Assessment and Plan (1) Acute renal failure Status: Acute Assessment and plan: Creatinine on 12/02/2016 was 1.1. This is jumped dramatically to 7.5 at the time of presentation. The patient has acute renal failure which appears to be a contrast induced nephropathy exacerbated by anorexia and poor p.o. intake subsequent to the catheterization. All potentially nephrotoxic agents have been stopped. She has been given some IV fluid hydration. I may give her a bit more hydration. We will monitor this and hopefully this will improve. Current Visit: Yes (2) Peripheral vascular disease Status: Acute Assessment and plan: This is clinically stable and we will manage conservatively at this time. Current Visit: Yes (3) Coronary artery disease Status: Acute Assessment and plan: Catheterization did not show any high-grade disease in need of revascularization. For now we will continue to manage this conservatively. Current Visit: No Qualifiers: Coronary Disease-Associated Artery/Lesion type: north fork artery [place] vs. transplanted heart: north fork heart Associated angina: with unstable angina Qualified Code(s): I25.110 - Atherosclerotic heart disease of north fork coronary artery with unstable angina pectoris (4) Anemia Status: Acute Current Visit: Yes (5) COPD (chronic obstructive pulmonary disease) Status: Acute Current Visit: Yes (6) Elevated liver enzymes Status: Acute Current Visit: Yes (7) History of coronary artery stent placement Status: Acute Current Visit: Yes (8) Hyperkalemia Status: Acute Current Visit: Yes (9) Leukocytosis Status: Acute Current Visit: Yes (10) Essential hypertension Status: Acute Current Visit: No (11) Diabetes mellitus Status: Chronic Current Visit: No Qualifiers: Diabetes mellitus type: type 2 Diabetes mellitus complication status: without complication Diabetes mellitus medical terminologist insulin use: without medical terminologist use Qualified Code(s): E11.9 - Type 2 diabetes mellitus without complications (12) KOBY (obstructive sleep apnea) Status: Ruled-out Current Visit: No History of Present Illness - Consult Narrative History of present illness: Ms. Quintana is a 61 year old female who is well known to me. She has a history of multiple medical problems including hypertension, diabetes, coronary artery disease with previous stent placement, diastolic heart failure, and COPD. Last Wednesday, the patient underwent cardiac catheterization via the right radial artery which did not show any high-grade disease in need of revascularization. She had normal left ventricular systolic function. The following day she had a CT angiogram of her lower extremities to evaluate for the source of claudication. She did have moderate to severe disease in her lower extremity vasculature which will be evaluating down the road. Patient reports that the following day she had no appetite. She did not have actual nausea or vomiting, but just anorexia. She did not eat or drink anything Wednesday or Wednesday. She went to her local emergency room complaining of abdominal pain and anorexia. There she was noted to have new onset of severe renal insufficiency with a creatinine of 7.5. Her creatinine was 1.1 on December 02, 2016. She was also noted to have moderate hyperkalemia which has been treated. The patient was transferred here for further workup and management. She was also noted to have modest elevation of her liver function tests.Gastroenterology is seeing her and working this up. The patient denies any cardiac symptoms at this time to include angina, palpitations, or heart failure symptoms. Her appetite is actually much better today and she has eaten. She did not have any abdominal pain, nausea, or vomiting. She denies any gastrointestinal blood loss. At the time I was seeing her, clinically she was essentially feeling back to normal. It appears that she has a contrast- induced nephropathy, which may be exacerbated by subsequent anorexia and poor p.o. intake. The etiology of the LFT abnormalities is somewhat unclear but workup is underway. Current Medications Acetylcysteine (Mucomyst Cap (Renal Protect)) 600 mg PO BID [facility] Albuterol/Ipratropium (Duoneb) 3 ml RESP TX RT Q4H PRN PRN Reason: Shortness of Breath/Wheezing Aspirin () 81 mg PO DAILY [facility] Last Admin: 12/06/16 09:10 Dose: 81 mg Budesonide/Formoterol Fumarate (Symbicort 160-4.5) 2 puff INH BID [facility] Last Admin: 12/06/16 09:10 Dose: 2 puff Clopidogrel Bisulfate (Plavix) 75 mg PO DAILY [facility] Last Admin: 12/06/16 09:10 Dose: 75 mg Dextrose/Water (D50) 25 gm IV PRN PRN PRN Reason: Hypoglycemia with IV access Glucagon () 1 mg IM PRN PRN PRN Reason: Hypoglycemia w/o IV access Heparin Sodium (Porcine) () 5,000 unit SUBCUT Q8H [facility] Last Admin: 12/06/16 12:22 Dose: 5,000 unit Insulin Human Lispro (Humalog) 0 unit SUBCUT [facility] PRN Reason: Protocol Last Admin: 12/06/16 12:21 Dose: 4 unit CC: Emerald Holloway MD - Home Medications and Allergies Home Medications: Home Medications Medication Instructions Recorded Confirmed Type Aspirin [Ecotrin] 81 mg PO DAILY 10/25/14 12/06/16 History Gabapentin 300 mg PO BID 12/28/15 12/06/16 History Cyanocobalamin (Vitamin B-12) 1 each PO DAILY 12/29/15 12/06/16 History [B-12] Atorvastatin [Lipitor] 80 mg PO BEDTIME #30 tablet 01/02/16 12/06/16 Rx Carvedilol [Coreg] 12.5 mg PO BID #60 tablet 01/02/16 12/06/16 Rx Clopidogrel [Plavix] 75 mg PO DAILY #30 tablet 01/02/16 12/06/16 Rx Metformin HCl 1,000 mg PO BID #0 01/02/16 12/06/16 Rx Amlodipine Besylate 10 mg PO DAILY 02/16/16 12/06/16 History Furosemide Tab [Lasix Tab] 80 mg PO DAILY 02/16/16 12/06/16 History Ipratropium Inhaler [Atrovent 2 puff INH QID PRN 02/16/16 12/06/16 History Inhaler] Lisinopril [Prinivil] 10 mg PO BID #60 tablet 02/20/16 12/06/16 Rx Albuterol Sulfate [Ventolin HFA] 2 puff INH Q4H PRN 12/02/16 12/06/16 History Benzonatate 100 mg PO TID PRN 12/02/16 12/06/16 History Budesonide/Formoterol 160-4.5 2 puff INH BID 12/02/16 12/06/16 History [Symbicort 160-4.5] Escitalopram [Lexapro] 10 mg PO DAILY 12/02/16 12/06/16 History Ipratropium Inhaler [Atrovent 2 puff INH Q6HR 12/02/16 12/06/16 History Inhaler] Metoprolol Tartrate 25 mg PO DAILY 12/02/16 12/06/16 History NIFEdipine [Nifedipine ER] 30 mg PO DAILY 12/02/16 12/06/16 History hydrALAZINE TAB [Apresoline Tab] 25 mg PO BID 12/02/16 12/06/16 History Allergies/Adverse Reactions: Allergies Allergy/AdvReac Type Severity Reaction Status Date / Time codeine AdvReac Vomiting Verified 10/25/14 13:16 diazepam [From Valium] AdvReac Unknown/Unable Verified 10/25/14 13:16 to obtain 12 point system: reviewed and no additional remarkable complaints except as stated Medical,Surgical,& Family Hx - Medical History Cardio: History of: CHF, CAD (previous stents to dLAD, mLAD, LCx/OM1 by Dr. Mat Wu.), Hypertension, [place] Psychological: History of: Depression Neurology: History of: TIA (PT STATES HAD "MINI STROKE"), Vertigo No history of: Seizures HEENT: History of: Eye Problem (left eye "runny") Endocrine: History of: Diabetes Mellitus (NIDDM) Respiratory: History of: COPD, Respiratory Problems (family states "has problems catching her breath") Gastrointestinal: History of: GI Problems (TAKES SIMETHICONE 125MG BID) - Surgical History Cardiac Surgeries: Sugical HX of: Cardiac Catheterization (stents placed) Thoracic Surgeries: Patient denies;: Lobectomy Neurologic Surgeries: Patient denies: Neurologic Surgery HEENT Surgeries: Surgical HX of: Eye Surgery (CATARACTS), Tonsilectomy & Adenoidectomy Abdominal Surgeries: Patient denies: Abdominal Surgery Reproductive Surgeries: Surgical HX of;: Section (Xs 2), Gynecologic Surgery, Hysterectomy Patient denies;: Genitourinary Surgery - Family History Family History: Reports;: Family Stroke (grandfather) - Social History Smoking Status: Former smoker (quit 1 year ago) Frequency of Alcohol Use: None Type of Drug Use: None Physical Examination Vital Signs Temp Pulse Resp BP Pulse Ox 98.4 F 59 L 21 82/54 91 L 12/05/16 23:47 12/05/16 23:47 12/05/16 23:47 12/05/16 23:47 12/05/16 23:47 Exam: General: Appears well developed, well nourished, obese, no apparent distress HEENT: Normocephalic, atraumatic Neck: Supple Neck, Midline Trachea, No Bruit, No JVD Cardiac: Regular rhythm, 2 out of 6 murmur, no gallop, no rub Lungs: Clear to auscultation, No Wheeze, Rales, Rhonchi Neuro: Cranial Nerve 2-12 Intact, Motor Function Grossly Intact Abdomen: Soft, Active Bowel Sounds, No Masses, No Pulsations/Bruits Skin: Normal color, no rash Extremities: No Clubbing, No Cyanosis, No Edema, Normal Upper Extr. Pulses Musculoskeletal: No acute abnormality noted Psychiatric: The patient does not appear to be anxious or depressed Result/EKG - Labs CBC & BMP: 12/06/16 06:20 12/06/16 06:20 Lab Results: I have reviewed the past 24 hour labs Labs: Laboratory Results - last 24 hr 12/06/16 12/06/16 12/06/16 00:45 00:45 00:45 WBC RBC Hgb Hct MCV MCH MCHC RDW Plt Count MPV Neut % (Auto) Lymph % (Auto) [place] % (Auto) Eos % (Auto) Baso % (Auto) Neut # (Auto) Lymph # (Auto) [place] # (Auto) Eos # (Auto) Baso # (Auto) Immature Gran % Nucleated RBC % Immature Gran # Nucleated RBCs # Immature Plt Fraction Sodium Potassium 5.4 H Chloride Carbon Dioxide Anion Gap BUN Creatinine GFR Calculation BUN/Creatinine Ratio Glucose POC Glucose Calculated Osmolality Calcium Iron TIBC % Saturation Ferritin Total Bilirubin AST ALT Alkaline Phosphatase Ammonia B-Natriuretic Peptide Total Protein Albumin Globulin Albumin/Globulin Ratio Vitamin B12 Folate Free T4 TSH 3rd Generation 2.100 Urine Color Urine Appearance Urine pH Ur Specific [place] Urine Protein Urine Glucose (UA) Urine Ketones Urine Blood Urine Nitrate Urine Bilirubin Urine Urobilinogen Urine Leukocytes Urine RBC Urine WBC Urine Bacteria Urine Yeast (Budding) Ur Culture Indicated? Urine Eosinophils Urine Osmolality Ur Random Creatinine Ur Random Sodium Ur Random Urea Nitrogn Acetaminophen 2.8 L Hepatitis A IgM Ab Hep Bs Antigen Hep B Core IgM Ab 12/06/16 12/06/16 12/06/16 00:45 01:06 01:06 WBC RBC Hgb Hct MCV MCH MCHC RDW Plt Count MPV Neut % (Auto) Lymph % (Auto) [place] % (Auto) Eos % (Auto) Baso % (Auto) Neut # (Auto) Lymph # (Auto) [place] # (Auto) Eos # (Auto) Baso # (Auto) Immature Gran % Nucleated RBC % Immature Gran # Nucleated RBCs # Immature Plt Fraction Sodium Potassium Chloride Carbon Dioxide Anion Gap BUN Creatinine GFR Calculation BUN/Creatinine Ratio Glucose POC Glucose Calculated Osmolality Calcium Iron TIBC % Saturation Ferritin Total Bilirubin AST ALT Alkaline Phosphatase Ammonia B-Natriuretic Peptide Total Protein Albumin Globulin Albumin/Globulin Ratio Vitamin B12 Folate Free T4 1.12 TSH 3rd Generation Urine Color Laura Urine Appearance Cloudy Urine pH 5.0 Ur Specific [place] 1.038 H Urine Protein 30 Urine Glucose (UA) 50 Urine Ketones Negative Urine Blood Negative Urine Nitrate Negative Urine Bilirubin Negative Urine Urobilinogen < 2.0 H Urine Leukocytes Trace Urine RBC 4 Urine WBC 2 Urine Bacteria Few Urine Yeast (Budding) Few Ur Culture Indicated? Results to follow Urine Eosinophils 0 Urine Osmolality Ur Random Creatinine Ur Random Sodium Ur Random Urea Nitrogn Acetaminophen Hepatitis A IgM Ab Hep Bs Antigen Hep B Core IgM Ab 12/06/16 12/06/16 12/06/16 02:24 02:24 03:23 WBC RBC Hgb Hct MCV MCH MCHC RDW Plt Count MPV Neut % (Auto) Lymph % (Auto) [place] % (Auto) Eos % (Auto) Baso % (Auto) Neut # (Auto) Lymph # (Auto) [place] # (Auto) Eos # (Auto) Baso # (Auto) Immature Gran % Nucleated RBC % Immature Gran # Nucleated RBCs # Immature Plt Fraction Sodium Potassium Chloride Carbon Dioxide Anion Gap BUN Creatinine GFR Calculation BUN/Creatinine Ratio Glucose POC Glucose 130 H Calculated Osmolality Calcium Iron TIBC % Saturation Ferritin Total Bilirubin AST ALT Alkaline Phosphatase Ammonia B-Natriuretic Peptide Total Protein Albumin Globulin Albumin/Globulin Ratio Vitamin B12 Folate Free T4 TSH 3rd Generation Urine Color Urine Appearance Urine pH Ur Specific [place] Urine Protein Urine Glucose (UA) Urine Ketones Urine Blood Urine Nitrate Urine Bilirubin Urine Urobilinogen Urine Leukocytes Urine RBC Urine WBC Urine Bacteria Urine Yeast (Budding) Ur Culture Indicated? Urine Eosinophils Urine Osmolality 311 Ur Random Creatinine 134 Ur Random Sodium 21.0 Ur Random Urea Nitrogn 143 Acetaminophen Hepatitis A IgM Ab Hep Bs Antigen Hep B Core IgM Ab 12/06/16 12/06/16 12/06/16 06:20 06:20 06:20 WBC 10.3 D RBC 3.79 L Hgb 9.2 L Hct 30.9 L MCV 81.5 L MCH 24 L MCHC 29.8 L RDW 17.2 Plt Count 314 MPV 10.3 Neut % (Auto) 77.3 H Lymph % (Auto) 14.3 L [place] % (Auto) 6.4 Eos % (Auto) 0.6 Baso % (Auto) 0.6 Neut # (Auto) 8.0 H Lymph # (Auto) 1.5 [place] # (Auto) 0.7 Eos # (Auto) 0.1 Baso # (Auto) 0.1 Immature Gran % 0.8 Nucleated RBC % 0.0 Immature Gran # 0.08 Nucleated RBCs # 0.00 Immature Plt Fraction 0.0 Sodium 130 L Potassium 5.4 H Chloride 96 L Carbon Dioxide 22 Anion Gap 17.4 H BUN 73 H Creatinine 7.90 H GFR Calculation 6 BUN/Creatinine Ratio 9.00 Glucose 139 H POC Glucose Calculated Osmolality 283.8 Calcium 8.3 L Iron TIBC % Saturation Ferritin Total Bilirubin 0.90 AST 323 H ALT 668 H Alkaline Phosphatase 119 H Ammonia B-Natriuretic Peptide Total Protein 6.1 L Albumin 3.0 L Globulin 3.1 Albumin/Globulin Ratio 0.9 L Vitamin B12 Folate Free T4 TSH 3rd Generation Urine Color Urine Appearance Urine pH Ur Specific [place] Urine Protein Urine Glucose (UA) Urine Ketones Urine Blood Urine Nitrate Urine Bilirubin Urine Urobilinogen Urine Leukocytes Urine RBC Urine WBC Urine Bacteria Urine Yeast (Budding) Ur Culture Indicated? Urine Eosinophils Urine Osmolality Ur Random Creatinine Ur Random Sodium Ur Random Urea Nitrogn Acetaminophen Hepatitis A IgM Ab Negative Hep Bs Antigen Negative Hep B Core IgM Ab Negative 12/06/16 12/06/16 12/06/16 06:20 06:20 06:20 WBC RBC Hgb Hct MCV MCH MCHC RDW Plt Count MPV Neut % (Auto) Lymph % (Auto) [place] % (Auto) Eos % (Auto) Baso % (Auto) Neut # (Auto) Lymph # (Auto) [place] # (Auto) Eos # (Auto) Baso # (Auto) Immature Gran % Nucleated RBC % Immature Gran # Nucleated RBCs # Immature Plt Fraction Sodium Potassium Chloride Carbon Dioxide Anion Gap BUN Creatinine GFR Calculation BUN/Creatinine Ratio Glucose POC Glucose Calculated Osmolality Calcium Iron 21 L TIBC 325 % Saturation 6.5 L Ferritin 102.1 Total Bilirubin AST ALT Alkaline Phosphatase Ammonia 14 B-Natriuretic Peptide Total Protein Albumin Globulin Albumin/Globulin Ratio Vitamin B12 Folate Free T4 TSH 3rd Generation Urine Color Urine Appearance Urine pH Ur Specific [place] Urine Protein Urine Glucose (UA) Urine Ketones Urine Blood Urine Nitrate Urine Bilirubin Urine Urobilinogen Urine Leukocytes Urine RBC Urine WBC Urine Bacteria Urine Yeast (Budding) Ur Culture Indicated? Urine Eosinophils Urine Osmolality Ur Random Creatinine Ur Random Sodium Ur Random Urea Nitrogn Acetaminophen Hepatitis A IgM Ab Hep Bs Antigen Hep B Core IgM Ab 12/06/16 12/06/16 12/06/16 06:20 06:20 08:28 WBC RBC Hgb Hct MCV MCH MCHC RDW Plt Count MPV Neut % (Auto) Lymph % (Auto) [place] % (Auto) Eos % (Auto) Baso % (Auto) Neut # (Auto) Lymph # (Auto) [place] # (Auto) Eos # (Auto) Baso # (Auto) Immature Gran % Nucleated RBC % Immature Gran # Nucleated RBCs # Immature Plt Fraction Sodium Potassium Chloride Carbon Dioxide Anion Gap BUN Creatinine GFR Calculation BUN/Creatinine Ratio Glucose POC Glucose 151 H Calculated Osmolality Calcium Iron TIBC % Saturation Ferritin Total Bilirubin AST ALT Alkaline Phosphatase Ammonia B-Natriuretic Peptide 953 H Total Protein Albumin Globulin Albumin/Globulin Ratio Vitamin B12 > 2000 H Folate 18.1 Free T4 TSH 3rd Generation Urine Color Urine Appearance Urine pH Ur Specific [place] Urine Protein Urine Glucose (UA) Urine Ketones Urine Blood Urine Nitrate Urine Bilirubin Urine Urobilinogen Urine Leukocytes Urine RBC Urine WBC Urine Bacteria Urine Yeast (Budding) Ur Culture Indicated? Urine Eosinophils Urine Osmolality Ur Random Creatinine Ur Random Sodium Ur Random Urea Nitrogn Acetaminophen Hepatitis A IgM Ab Hep Bs Antigen Hep B Core IgM Ab 12/06/16 11:36 WBC RBC Hgb Hct MCV MCH MCHC RDW Plt Count MPV Neut % (Auto) Lymph % (Auto) [place] % (Auto) Eos % (Auto) Baso % (Auto) Neut # (Auto) Lymph # (Auto) [place] # (Auto) Eos # (Auto) Baso # (Auto) Immature Gran % Nucleated RBC % Immature Gran # Nucleated RBCs # Immature Plt Fraction Sodium Potassium Chloride Carbon Dioxide Anion Gap BUN Creatinine GFR Calculation BUN/Creatinine Ratio Glucose POC Glucose 210 H Calculated Osmolality Calcium Iron TIBC % Saturation Ferritin Total Bilirubin AST ALT Alkaline Phosphatase Ammonia B-Natriuretic Peptide Total Protein Albumin Globulin Albumin/Globulin Ratio Vitamin B12 Folate Free T4 TSH 3rd Generation Urine Color Urine Appearance Urine pH Ur Specific [place] Urine Protein Urine Glucose (UA) Urine Ketones Urine Blood Urine Nitrate Urine Bilirubin Urine Urobilinogen Urine Leukocytes Urine RBC Urine WBC Urine Bacteria Urine Yeast (Budding) Ur Culture Indicated? Urine Eosinophils Urine Osmolality Ur Random Creatinine Ur Random Sodium Ur Random Urea Nitrogn Acetaminophen Hepatitis A IgM Ab Hep Bs Antigen Hep B Core IgM Ab - EKG EKG results: interpreted by me
[2016-12-06 12:51] LABS: Hepatitis B Surface Ab Result Negative
[2016-12-06] MEDS: ACETYLCYSTEINE 600 MG CAPSULE PO SCH ×2 (16:00→21:15)
--- NOTE | 2016-12-06 16:26 | Ultrasound Report ---
Exam: US venous doppler LE BI Indication: Swelling and pain bilaterally Date: 12/06/2016 3:25 AM Findings: The right common femoral, superficial femoral, popliteal and proximal saphenous saphenous veins are patent with normal waveform phasicity and augmentation as well as complete vessel compressibility. There is no evidence of popliteal or Tol[place]'s cyst. The left common femoral, superficial femoral, popliteal and proximal saphenous saphenous veins are patent with normal waveform phasicity and augmentation as well as complete vessel compressibility. There is no evidence of popliteal or [place]'s cyst. Impression: No evidence of deep venous thrombosis within bilateral lower extremity Ultrasound images were captured and stored. PROCEDURE INTERPRETED AT [facility] DEPARTMENT OF RADIOLOGY Final Report Signed by: Leo Damico
--- NOTE | 2016-12-06 16:34 | Ultrasound Report ---
Exam: Ultrasound abdomen complete Clinical History: 70-year-old female with elevated liver enzymes with pain, abdominal, epigastric Technique: Real-time ultrasound right upper quadrant with image documentation Comparison: CT performed on December 05, 2016 at 1929 hours Findings: : Note made of bilateral pleural effusions Liver: Liver is top normal in size measuring up to 18.0 cm slight increased echogenicity Gallbladder: Gallbladder is nondistended. Mild circumferential wall thickening measuring up to 0.8 cm. No demonstratable stones. Trace pericholecystic fluid. Common bile duct: Nondilated Pancreas: Unremarkable as visualized Kidneys: Normal in size position and echotexture with the right measuring 5.4 x 12.6 x 5.5 cm and the left measuring 5.5 x 12.2 x 5.5 cm. No hydronephrosis. Spleen: Mildly enlarged measuring 5.9 x 13.1 x 5.1 cm with total volume of 209 mL. Peritoneum: Trace ascites within the upper abdomen Impression: 1. Mild circumferential gallbladder wall thickening, nonspecific and may be reactive. Correlate with HIDA scan to evaluate for possible acalculous cholecystitis if clinically indicated 2. Splenomegaly 3. Bilateral pleural effusions with trace ascites PROCEDURE INTERPRETED AT [facility] DEPARTMENT OF RADIOLOGY Final Report Signed by: Leo Damico
[2016-12-06] MEDS ORDERED: ALUMINUM/MAGNES/SIMETH MAX STR 30 ML UDCUP PO PRN (17:15)
--- NOTE | 2016-12-06 17:19 | EKG Report ---
Stationary ECG Study [facility] Test Date: 12/06/2016 5:13:17 PM Pat Name: KRIS PLAZA Department: Room: 222 Gender: F Dairy Farm Operator: : [id number] Requested by: Emerald Holloway Order Number: [id number] Reading MD: TANISHA LOZOYA Intervals [place] Rate: 64 P: 71 LA: 173 QRS: 20 QRSD: 113 T: 52 QT: 433 QTc: 443 Interpretive Statements SINUS RHYTHM Electronically Signed On 12-07-16 16:08:25 CDT by TANISHA LOZOYA [email or web address]
[2016-12-06 17:20] LABS: ABG Base Excess -4.5 MMOL/L (-2.5-2.5); ABG HCO3 20.6 MMOL/L (20-26); ABG Oxygen Saturation 90.4 % (95-100); ABG PCO2 55.3 MM HG (35-48); ABG PH 7.234 (7.35-7.45); ABG PO2 66.7 MM HG (80-95); ABG TCO2 22.1 MMOL/L (23-27)
[2016-12-06] MEDS ORDERED: ALUMINUM/MAGNES/SIMETH MAX STR 30 ML UDCUP ONE (17:23)
[2016-12-06 17:32] LABS: Basophils % 0.4 % (0.0-0.8); Eosinophils # 0.1 10*3/uL (0.0-0.87); Eosinophils % 1.5 % (0.00-10.9); Hematocrit 28.6 VOL% (35.7-47.0); Hemoglobin 8.7 GM/DL (12.0-16.0); Immature Granulocytes % 1.1 %; Immature Granulocytes Absolute 0.08 #; Lymphocytes # 1.2 10*3/uL (1.4-4.0); Mean Corpuscular HGB Conc 30.4 GM/DL (32-36); Mean Corpuscular Hemoglobin 24 PG (27-34); Mean Corpuscular Volume 79.7 FL (87-102); Mean Platelet Volume 10.1 FL (9.6-12.0); Monocytes # 0.6 10*3/uL (0.11-0.8); Monocytes % 8.4 % (1.7-12.7); Neutrophils # 5.5 10*3/uL (1.4-7.4); Neutrophils % 72.6 % (38.7-73.9); Platelet Count 300 T/CUMM (130-400); Red Blood Count 3.59 MC/CUMM (3.8-5.5); Red Cell Distribution Width 16.9 % (9.3-17.3); White Blood Count 7.5 T/CUMM (4-12)
[2016-12-06 18:00] LABS: Albumin 2.7 G/DL (3.4-5.0); Bilirubin,Total 0.4 MG/DL (0.2-1.0); Osmolality,Calculated 287.8 MOS/KG (273-304); Potassium 5.4 MMOL/L (3.5-5.1)
[2016-12-06 18:22] LABS: Magnesium 2.5 MG/DL (1.8-2.4)
[2016-12-06 18:28] LABS: Troponin I Only 0.598 NG/ML (0.00-0.045)
--- NOTE | 2016-12-06 18:42 | XRay Report ---
Portable chest December 06, 2016 Indication: Shortness of breath, chest pain Comparison images dated December 02, 2016. Findings: Cardiomediastinal contours are stable with underlying cardiomegaly. Interstitial edema pattern is unchanged with minimal improvement in the bilateral pleural effusions and basilar atelectasis Impression: Stable pulmonary edema pattern with minimal improvement in the bilateral pleural effusions since prior study PROCEDURE INTERPRETED AT [facility] DEPARTMENT OF RADIOLOGY Final Report Signed by: Leo Damico
[2016-12-07 06:13] LABS: Hepatitis C Virus Ab Quant > 11.00 Index; Hepatitis C Virus Ab Result Positive (Negative)
[2016-12-07 06:13] LABS: Hepatitis C Virus Ab Quant > 11.00 Index; Hepatitis C Virus Ab Result Positive (Negative)
[2016-12-07] MEDS: HEPARIN 5,000 UNIT/1 ML VIAL SUBCUT SCH ×3 (06:40→21:08)
[2016-12-07] MEDS: INSULIN LISPRO 100 UNIT/ML SUBCUT SCH ×4 (09:43→21:08)
[2016-12-07] MEDS: ACETYLCYSTEINE 600 MG CAPSULE PO SCH ×2 (09:44→21:08)
[2016-12-07] MEDS: CLOPIDOGREL 75 MG TABLET PO SCH (09:44)
[2016-12-07] MEDS: ASPIRIN EC 81 MG TABLET PO SCH (09:44)
[2016-12-07] MEDS: BUDESONIDE/FORMOTEROL 160-4.5 INHALER 6 GM INH SCH ×2 (09:44→21:09)
--- NOTE | 2016-12-07 11:56 | Cardiology Progress Note ---
Assessment and Plan (1) Acute renal failure Status: Acute Assessment and plan: Creatinine on 12/02/2016 was 1.1. This is jumped dramatically to 7.5 at the time of presentation and is now up to 8.7. The patient has acute renal failure which appears to be a contrast induced nephropathy exacerbated by anorexia and poor p.o. intake subsequent to the catheterization. All potentially nephrotoxic agents have been stopped. She has been given some IV fluid hydration. We will monitor this and hopefully this will improve. Current Visit: Yes (2) Peripheral vascular disease Status: Acute Assessment and plan: This is clinically stable and we will manage conservatively at this time. Current Visit: Yes (3) Coronary artery disease Status: Chronic Assessment and plan: Catheterization did not show any high-grade disease in need of revascularization. For now we will continue to manage this conservatively. Current Visit: No Qualifiers: Coronary Disease-Associated Artery/Lesion type: [place] artery [place] vs. transplanted heart: [place] heart Associated angina: with unstable angina Qualified Code(s): I25.110 - Atherosclerotic heart disease of [place] coronary artery with unstable angina pectoris (4) Anemia Status: Acute Current Visit: Yes (5) COPD (chronic obstructive pulmonary disease) Status: Acute Current Visit: Yes (6) Elevated liver enzymes Status: Acute Current Visit: Yes (7) History of coronary artery stent placement Status: Acute Current Visit: Yes (8) Hyperkalemia Status: Acute Current Visit: Yes (9) Essential hypertension Status: Acute Current Visit: No (10) Diabetes mellitus Status: Chronic Current Visit: No Qualifiers: Diabetes mellitus type: type 2 Diabetes mellitus complication status: without complication Diabetes mellitus detention insulin use: without medical terminologist use Qualified Code(s): E11.9 - Type 2 diabetes mellitus without complications (11) KOBY (obstructive sleep apnea) Status: Ruled-out Current Visit: No Cardiology - PN: Subj Interval history: The patient reports feeling "tired" today. She probably has sleep apnea but did not go get her sleep study as ordered because "I could not afford it". She has no specific symptoms such as palpitations or chest pain. She denies any dyspnea, orthopnea, or peripheral edema. Unfortunately, her renal function is still a bit worse today. Current Medications Acetylcysteine (Mucomyst Cap (Renal Protect)) 600 mg PO BID [facility] Last Admin: 12/07/16 09:44 Dose: 600 mg Al Hydrox/Mg Hydrox/Simethicone (Mylanta Max Strength Liquid) 30 ml PO Q4H PRN PRN Reason: Dyspepsia Albuterol/Ipratropium (Duoneb) 3 ml RESP TX RT Q4H PRN PRN Reason: Shortness of Breath/Wheezing Aspirin () 81 mg PO DAILY [facility] Last Admin: 12/07/16 09:44 Dose: 81 mg Budesonide/Formoterol Fumarate (Symbicort 160-4.5) 2 puff INH BID [facility] Last Admin: 12/07/16 09:44 Dose: 2 puff Clopidogrel Bisulfate (Plavix) 75 mg PO DAILY [facility] Last Admin: 12/07/16 09:44 Dose: 75 mg Dextrose/Water (D50) 25 gm IV PRN PRN PRN Reason: Hypoglycemia with IV access Glucagon () 1 mg IM PRN PRN PRN Reason: Hypoglycemia w/o IV access Heparin Sodium (Porcine) () 5,000 unit SUBCUT Q8H [facility] Last Admin: 12/07/16 06:40 Dose: 5,000 unit Insulin Human Lispro (Humalog) 0 unit SUBCUT ACHS [facility] PRN Reason: Protocol Last Admin: 12/07/16 09:43 Dose: 2 unit Exam (Progress Note) - Constitutional Vitals: Period Temp Pulse Resp BP Sys/Quach Pulse Ox Last 24 Hr 97.1 F-98.5 F 62-98 18-22 117-164/58-81 86-98 Exam: General: Appears well developed, obese, well nourished, no apparent distress HEENT: Normocephalic, atraumatic Neck: Supple Neck, Midline Trachea, No Bruit, No JVD Cardiac: Regular rhythm, 1-2 out of 6 murmur, no gallop, no rub Lungs: Clear to auscultation, No Wheeze, Rales, Rhonchi Neuro: Cranial Nerve 2-12 Intact, Motor Function Grossly Intact Abdomen: Soft, Active Bowel Sounds, No Masses, No Pulsations/Bruits Skin: Normal color, no rash Extremities: No Clubbing, No Cyanosis, No Edema, Normal Upper Extr. Pulses Musculoskeletal: No acute abnormality noted Psychiatric: The patient does not appear to be anxious or depressed Result/EKG - Labs CBC & BMP: 12/06/16 17:12 12/06/16 17:12 Lab Results: I have reviewed the past 24 hour labs Labs: Laboratory Results - last 24 hr 12/06/16 12/06/16 12/06/16 06:20 11:19 11:36 WBC RBC Hgb Hct MCV MCH MCHC RDW Plt Count MPV Neut % (Auto) Lymph % (Auto) [place] % (Auto) Eos % (Auto) Baso % (Auto) Neut # (Auto) Lymph # (Auto) [place] # (Auto) Eos # (Auto) Baso # (Auto) Immature Gran % Nucleated RBC % Immature Gran # Nucleated RBCs # Immature Plt Fraction ABG pH ABG pCO2 ABG pO2 ABG HCO3 ABG Total CO2 ABG O2 Saturation ABG Base Excess Sodium Potassium Chloride Carbon Dioxide Anion Gap BUN Creatinine GFR Calculation BUN/Creatinine Ratio Glucose POC Glucose 210 H Calculated Osmolality Calcium Magnesium Total Bilirubin AST ALT Alkaline Phosphatase Troponin I Total Protein Albumin Globulin Albumin/Globulin Ratio ILANA Screen Negative (<1:160) Treponema pallidum IgG Nonreactive Hep Bs Antibody Negative Hepatitis C Antibody Positive A Positive A 12/06/16 12/06/16 12/06/16 16:46 17:12 17:12 WBC RBC Hgb Hct MCV MCH MCHC RDW Plt Count MPV Neut % (Auto) Lymph % (Auto) [place] % (Auto) Eos % (Auto) Baso % (Auto) Neut # (Auto) Lymph # (Auto) [place] # (Auto) Eos # (Auto) Baso # (Auto) Immature Gran % Nucleated RBC % Immature Gran # Nucleated RBCs # Immature Plt Fraction ABG pH 7.234 L ABG pCO2 55.3 H ABG pO2 66.7 L ABG HCO3 20.6 ABG Total CO2 22.1 L ABG O2 Saturation 90.4 L ABG Base Excess -4.5 L Sodium Potassium Chloride Carbon Dioxide Anion Gap BUN Creatinine GFR Calculation BUN/Creatinine Ratio Glucose POC Glucose 181 H Calculated Osmolality Calcium Magnesium 2.5 H Total Bilirubin AST ALT Alkaline Phosphatase Troponin I 0.598 H Total Protein Albumin Globulin Albumin/Globulin Ratio ILANA Screen Treponema pallidum IgG Hep Bs Antibody Hepatitis C Antibody 12/06/16 12/06/16 12/06/16 17:12 17:12 19:44 WBC 7.5 RBC 3.59 L Hgb 8.7 L Hct 28.6 L MCV 79.7 L MCH 24 L MCHC 30.4 L RDW 16.9 Plt Count 300 MPV 10.1 Neut % (Auto) 72.6 Lymph % (Auto) 16.0 L [place] % (Auto) 8.4 Eos % (Auto) 1.5 Baso % (Auto) 0.4 Neut # (Auto) 5.5 Lymph # (Auto) 1.2 L [place] # (Auto) 0.6 Eos # (Auto) 0.1 Baso # (Auto) 0.0 Immature Gran % 1.1 Nucleated RBC % 0.0 Immature Gran # 0.08 Nucleated RBCs # 0.00 Immature Plt Fraction 0.0 ABG pH ABG pCO2 ABG pO2 ABG HCO3 ABG Total CO2 ABG O2 Saturation ABG Base Excess Sodium 130 L Potassium 5.4 H Chloride 95 L Carbon Dioxide 27 Anion Gap 13.4 BUN 82 H Creatinine 8.70 H GFR Calculation 6 BUN/Creatinine Ratio 9.00 Glucose 159 H POC Glucose 188 H Calculated Osmolality 287.8 Calcium 8.0 L Magnesium Total Bilirubin 0.40 AST 244 H ALT 596 H Alkaline Phosphatase 114 Troponin I Total Protein 6.0 L Albumin 2.7 L Globulin 3.3 Albumin/Globulin Ratio 0.8 L ILANA Screen Treponema pallidum IgG Hep Bs Antibody Hepatitis C Antibody - EKG EKG results: interpreted by me
--- NOTE | 2016-12-07 14:14 | Hospitalist Progress Note ---
Assessment and Plan (1) Contrast dye induced nephropathy Status: Acute Assessment and plan: The patient has no indications for dialysis at this time. We are continuing to monitor renal function. The patient has had 2 urinations today. Will recheck electrolytes tomorrow. Current Visit: Yes (2) Diabetes mellitus Status: Chronic Current Visit: No Qualifiers: Diabetes mellitus type: type 2 Diabetes mellitus complication status: without complication Diabetes mellitus intermediate accountant insulin use: without intermediate accountant use Qualified Code(s): E11.9 - Type 2 diabetes mellitus without complications (3) Essential hypertension Status: Acute Current Visit: No (4) Peripheral vascular disease Status: Acute Current Visit: Yes Hospitalist: Subjective Interval history: The patient has contrast associated nephropathy and creatinine continues to rise. The patient does not complain of nausea, shortness of breath, or angina today. Exam - Constitutional Vitals: Period Temp Pulse Resp BP Sys/Quach Pulse Ox Last 24 Hr 97.1 F-98.5 F 61-98 17-22 117-164/58-81 86-98 General appearance: no acute distress - Respiratory Respiratory exam: Present: clear to auscultation bilaterally - Cardiovascular Cardiovascular exam: Present: regular rate and rhythm - GI/Abdominal GI/Abdominal exam: Present: normal bowel sounds Results - Labs CBC & BMP: 12/06/16 17:12 12/06/16 17:12 Lab Results: I have reviewed the past 24 hour labs
--- NOTE | 2016-12-07 14:20 | Nephrology Progress Note ---
Nephrology - PN: Subj Interval history: She states she feels tired today. She has no shortness of breath or nausea. Exam (PN)-Nephrology - Vital Signs Vital signs: Period Temp Pulse Resp BP Sys/Quach Pulse Ox Last 24 Hr 97.1 F-98.5 F 61-98 17-22 117-164/58-81 86-98 Exam: Gen.: Alert and oriented x3. ENT: Pupils equal round reactive to light. EOMs intact. Mucous membranes moist. Neck: Supple. No JVD or bruit. Cardiovascular: Regular rate and rhythm. No murmur rub or gallop Lungs: Clear Abdomen: Soft. Nontender. Positive bowel sounds. No organomegaly Extremities: 1+ edema - Lab 12/06/16 17:12 12/06/16 17:12 Most recent lab results ABG pH 7.234 (7.35-7.45) L 12/06/16 17:12 ABG pCO2 55.3 MM HG (35-48) H 12/06/16 17:12 ABG pO2 66.7 MM HG (80-95) L 12/06/16 17:12 ABG HCO3 20.6 MMOL/L (20-26) 12/06/16 17:12 ABG O2 Saturation 90.4 % (95-100) L 12/06/16 17:12 Calcium 8.0 MG/DL (8.5-10.1) L 12/06/16 17:12 Magnesium 2.5 MG/DL (1.8-2.4) H 12/06/16 17:12 Assessment and Plan (1) Acute renal failure Status: Acute Assessment and plan: 61-year-old woman with: * ARF. She remains oliguric. She has no uremic symptoms. Lab is pending * Hyperkalemia * Elevated liver enzymes. Possible cirrhosis. * Diabetes mellitus * Hypertension * Sleep apnea * CAD Current Visit: Yes (2) Anemia Status: Acute Current Visit: Yes (3) Elevated liver enzymes Status: Acute Current Visit: Yes (4) Hyperkalemia Status: Acute Current Visit: Yes (5) Congestive heart failure Problem details: EF 60% per echo 12/29/15 Status: Acute Current Visit: No Qualifiers: Congestive heart failure type: diastolic Congestive heart failure chronicity: acute on chronic Qualified Code(s): I50.33 - Acute on chronic diastolic (congestive) heart failure (6) Essential hypertension Status: Acute Current Visit: No (7) Diabetes mellitus Status: Chronic Current Visit: No Qualifiers: Diabetes mellitus type: type 2 Diabetes mellitus complication status: without complication Diabetes mellitus alf insulin use: without alf use Qualified Code(s): E11.9 - Type 2 diabetes mellitus without complications (8) KOBY (obstructive sleep apnea) Status: Ruled-out Current Visit: No
--- NOTE | 2016-12-07 15:04 | Gastrointestinal Progress Note ---
Assessment and Plan - Time spent with patient Time spent with patient: Greater than 30 minutes (1) Elevated liver enzymes Status: Acute Current Visit: Yes (2) Anemia Status: Acute Assessment and plan: PLEASE NOTE -- automatic citation of patient information is unavoidable in this electronic note. I have made a reasonable effort to review the information cited , but it is not a part of my evaluation, impression, or recommendation unless specifically discussed in the dictated text that follows. As well, voice recognition software was used in the creation of this clinical note. Reasonable effort was made to identify and correct gross errors. Despite proofreading, errors in life care planner may be present, including nonsense verbiage at times. If you encounter such an error, please contact me at for discussion and correction. -- Latanya Chief complaint: Elevated liver associated enzymes, possible cirrhosis 24 hour events: Seen by nephrology, cardiology, most likely post contrast- induced nephropathy/acute kidney failure exacerbated by poor p.o. intake Subjective: Ms. Marcia Quintana states that she is not feeling well today, feeling very ill, cannot stand on her own due to poor balance, feeling like she is running into things, and just is not feeling like herself. No abdominal pain. Is on oxygen at home. Medications: Reviewed REVIEW OF SYSTEMS: Complete other review of systems negative except as noted in the HPI PHYSICAL EXAMINATION: CONSTITUTIONAL: Vital signs reviewed as documented above. Appears unwell, mild distress, EYES: Anicteric conjunctiva. Extra-ocular movements are intact and symmetric. EARS: Able to hear speech at conversational volume level, no external trauma/ masses. LUNGS: No increased work of breathing or accessory muscle use, still on nasal cannula. GI/ABDOMEN: Obese abdomen, soft, nontender to palpation, no rebound tenderness, nondistended, no rigidity. SKIN: No rash on face, arms, or hands. No palpable lesions MUSCULOSKELETAL: Normal gait. Muscle tone appears normal without any abnormal movements. Neuro: No asterixis, still maintains fluid speech Laboratory: Personally reviewed, last labs from 12/06/2016 at 4 PM CBCWBC 7.5, hemoglobin stable at 8.7, MCV 79.7, platelet count 300 ABG with pH 7.2, CO2 55, PO2 66.7 Chemistry sodium 130, potassium 5.4, chloride 95, bicarb 27, BUN 82, creatinine increased 8.7, anion gap of 13.4, calcium 8.0, corrected to normal with albumin of 2.7 Magnesium 2.5 Iron 21, TIBC 325, ferritin 102 B12 greater than 2000, folate 18 Liver associated enzymes all downtrendingAST 244, ALT 596, alk phos 114, total bilirubin 0.4 Troponin 0 0.598 Hepatitis C antibody positive 2 Hepatitis B panel completely negative Syphilis IgG nonreactive ILANA negative (negative is less than 1:160) Radiology: Personally reviewed reports with no pertinent changes unless noted here: Abdominal ultrasound done 12/05/2016. Mild circumferential gallbladder wall thickening, nonspecific. Splenomegaly. Bilateral pleural effusions with trace ascites. Liver is Max normal size at 18 cm, slight increased echogenicity. Gallbladder nondistended. Common bile duct nondilated. Pancreas unremarkable. Trace ascites within the upper abdomen. Assessments: # Concern for respiratory acidosis, possibly driven by hypoxia, appears acute, as well as likely metabolic component #Renal failure with electrolyte abnormalities, including hyponatremia, hyperkalemia, hypo-chloremia, hypermagnesemia #Elevated liver associated enzymes: Overall downtrend in all markers since yesterday. Pattern of ALT greater than AST may be consistent with viral hepatitis, especially in the setting of hepatitis C antibody positivity. However, decompensation, relative ischemic event, are also possibilities for isolated cause of elevation versus comorbid disease. #HCV antibody positive: Can be seen with current hepatitis C infection, prior hepatitis C infection, and falsely positive in some cases, particularly with other autoimmune diseases. #Iron deficiency anemia. With recent EGD and colonoscopy last year, no evidence of overt GI bleeding or clinical evidence of malabsorption, although patient has been deficient in B12, vitamin D in the past. Celiac, anti- intrinsic factor, and antiparietal cell antibodies were ordered yesterday. #elevated troponin #Other specified counseling -- The patient was seen for greater than 30 minutes. The patient was counseled for greater than 50% of this time regarding differential diagnosis, likely diagnosis, diagnostic and therapeutic alternatives, risks/benefits/alternatives of medications and procedures, and plan of care generally. The patient expressed understanding and wishes to proceed. Recommendations: -Primary team to address current electrolyte and metabolic derangements as well as respiratory acidosis more acutely, have discussed directly with Dr. Choudhary, as I am concerned this is currently affecting patient's mental status and current function - HCV viral load and genotype to if there is confirm active infection- ordered -Follow-up other liver tests -Follow-up celiac, and autoimmune gastritis evaluation labs (anti-intrinsic factor and antiparietal cell antibody) -Continue with adequate hydration -continue to monitor LAE daily -If hepatitis C or other chronic liver disease is diagnosed, patient will need immunization for hepatitis A and B -Abdominal Doppler studies of hepatic and portal veins to ensure patency and flow Radha Pelaez MD, MPH STAFF [employer] Current Visit: Yes Exam (Progress Note) - Constitutional Vitals: Period Temp Pulse Resp BP Sys/Quach Pulse Ox Last 24 Hr 97.1 F-98.5 F 61-98 17-22 117-164/58-81 86-98 Results - Labs CBC & BMP: 12/06/16 17:12 12/06/16 17:12
[2016-12-07 15:39] LABS: Calcium 7.7 MG/DL (8.5-10.1); Osmolality,Calculated 288.9 MOS/KG (273-304); Potassium 5.8 MMOL/L (3.5-5.1)
[2016-12-07 18:31] LABS: ABG Base Excess -5.3 MMOL/L (-2.5-2.5); ABG HCO3 19.8 MMOL/L (20-26); ABG Oxygen Saturation 78.6 % (95-100); ABG PCO2 50.7 MM HG (35-48); ABG PH 7.247 (7.35-7.45); ABG PO2 49.2 MM HG (80-95); ABG TCO2 20.9 MMOL/L (23-27)
[2016-12-07] MEDS ORDERED: SODIUM POLYSTYRENE SULFATE 15 GM/60 ML BOTTLE PO ONE (20:50)
[2016-12-08] MEDS: HEPARIN 5,000 UNIT/1 ML VIAL SUBCUT SCH ×3 (05:21→21:39)
[2016-12-08 06:10] LABS: Calcium 7.7 MG/DL (8.5-10.1); Magnesium 2.7 MG/DL (1.8-2.4); Osmolality,Calculated 294.5 MOS/KG (273-304); Potassium 5.3 MMOL/L (3.5-5.1)
[2016-12-08 06:16] LABS: Albumin 2.8 G/DL (3.4-5.0); Calcium 7.6 MG/DL (8.5-10.1); Osmolality,Calculated 292.7 MOS/KG (273-304); Phosphorous 8.2 MG/DL (2.5-4.9); Potassium 5.2 MMOL/L (3.5-5.1)
[2016-12-08 06:23] LABS: Albumin 2.9 G/DL (3.4-5.0); Bilirubin,Total 0.7 MG/DL (0.2-1.0); Calcium 7.6 MG/DL (8.5-10.1); Osmolality,Calculated 291.7 MOS/KG (273-304); Phosphorous 8.5 MG/DL (2.5-4.9); Potassium 5.2 MMOL/L (3.5-5.1); Total Protein 5.8 G/DL (6.4-8.3)
[2016-12-08] MEDS: INSULIN LISPRO 100 UNIT/ML SUBCUT SCH ×4 (08:56→21:39)
--- NOTE | 2016-12-08 08:59 | Ultrasound Report ---
History: Elevated LAE with possible cirrhosis. Evaluate flow Date: 12/08/2016 Study: Ultrasound abdomen Doppler limited Comparison exam: December 06, 2016 Real-time ultrasound images are captured and archived. Color Doppler, pulse wave Doppler, and grayscale evaluation was performed. There is hepatopedal flow in the portal vein with slight undulation of the waveform with respiration. The right, middle, and left hepatic veins are patent with hepatofugal flow. Impression: Patent portal and hepatic veins with proper directional flow PROCEDURE INTERPRETED AT [facility] DEPARTMENT OF RADIOLOGY Final Report Signed by: Dr. Kayy Hodges
[2016-12-08] MEDS: ASPIRIN EC 81 MG TABLET PO SCH (09:20)
[2016-12-08] MEDS: ACETYLCYSTEINE 600 MG CAPSULE PO SCH ×2 (09:20→21:39)
[2016-12-08] MEDS: CLOPIDOGREL 75 MG TABLET PO SCH (09:21)
[2016-12-08] MEDS: BUDESONIDE/FORMOTEROL 160-4.5 INHALER 6 GM INH SCH (09:21)
--- NOTE | 2016-12-08 10:46 | Hospitalist Progress Note ---
Assessment and Plan (1) Diabetes mellitus Status: Chronic Assessment and plan: Her glucose today is 146. She appears to be well controlled on her present regimen including sliding scale insulin coverage. Current Visit: Yes Qualifiers: Diabetes mellitus type: type 2 Diabetes mellitus complication status: without complication Diabetes mellitus long term care social worker insulin use: without penitentiary use Qualified Code(s): E11.9 - Type 2 diabetes mellitus without complications (2) Coronary artery disease Status: Chronic Assessment and plan: She has a previous history of coronary stent insertion. She is stable now with no chest pain or shortness of breath. She is being followed by cardiology. Current Visit: Yes Qualifiers: Coronary Disease-Associated Artery/Lesion type: [place] artery [place] vs. transplanted heart: [place] heart Associated angina: with unstable angina Qualified Code(s): I25.110 - Atherosclerotic heart disease of [place] coronary artery with unstable angina pectoris (3) Acute renal failure Status: Acute Assessment and plan: Her BUN and creatinine today are 93 and 9.1. There is no significant change since yesterday. The above are compatible with contrast-induced nephropathy. She is being followed by nephrology. Current Visit: Yes Hospitalist: Subjective Interval history: There is no significant change since yesterday. She continues to feel weak and generally uncomfortable. She is not experiencing chest pain or shortness of breath. She continues to be followed by cardiology and nephrology. Exam - Constitutional Vitals: Period Temp Pulse Resp BP Sys/Quach Pulse Ox Last 24 Hr 97.1 F-98.0 F 61-74 17-72 119-148/52-94 90-92 General appearance: no acute distress - Head Head exam: Present: normal inspection - Neck Neck exam: Present: normal inspection - Respiratory Respiratory exam: Present: clear to auscultation bilaterally - Cardiovascular Cardiovascular exam: Present: regular rate and rhythm - GI/Abdominal GI/Abdominal exam: Present: normal bowel sounds, soft, other (Nontender with no palpable masses or hepatosplenomegaly.) - Extremities Exam Extremities exam: Present: normal inspection - Neurological Exam Neurological exam: Present: alert, oriented X3 - Skin Skin exam: Present: normal color, warm, intact Results - Labs CBC & BMP: 12/06/16 17:12 12/08/16 04:52
--- NOTE | 2016-12-08 11:02 | Nephrology Progress Note ---
Nephrology - PN: Subj Interval history: She denies shortness of breath or chest pain. No nausea or vomiting Exam (PN)-Nephrology - Vital Signs Vital signs: Period Temp Pulse Resp BP Sys/Quach Pulse Ox Last 24 Hr 97.1 F-98.0 F 61-74 17-72 119-148/52-94 90-92 Exam: Gen.: Alert and oriented x3. ENT: Pupils equal round reactive to light. EOMs intact. Mucous membranes moist. Neck: Supple. No JVD or bruit. Cardiovascular: Regular rate and rhythm. No murmur rub or gallop Lungs: Clear Abdomen: Soft. Nontender. Positive bowel sounds. No organomegaly Extremities: 1+ edema - Lab 12/06/16 17:12 12/08/16 04:52 Most recent lab results ABG pH 7.247 (7.35-7.45) L 12/07/16 15:01 ABG pCO2 50.7 MM HG (35-48) H 12/07/16 15:01 ABG pO2 49.2 MM HG (80-95) L 12/07/16 15:01 ABG HCO3 19.8 MMOL/L (20-26) L 12/07/16 15:01 ABG O2 Saturation 78.6 % (95-100) L 12/07/16 15:01 Calcium 7.6 MG/DL (8.5-10.1) L 12/08/16 04:52 Phosphorus 8.5 MG/DL (2.5-4.9) H 12/08/16 04:52 Magnesium 2.7 MG/DL (1.8-2.4) H 12/08/16 04:52 Assessment and Plan (1) Acute renal failure Status: Acute Assessment and plan: 61-year-old woman with: * ARF. Creatinine very slightly lower than yesterday. Weights and intake/ output not compatible. No symptoms of volume overload and no uremic symptoms. Fluid and potassium restriction. * Hyperkalemia. Improved * Elevated liver enzymes. Possible cirrhosis. * Diabetes mellitus * Hypertension * Sleep apnea * CAD Current Visit: Yes (2) Anemia Status: Acute Current Visit: Yes (3) Elevated liver enzymes Status: Acute Current Visit: Yes (4) Hyperkalemia Status: Acute Current Visit: Yes (5) Congestive heart failure Problem details: EF 60% per echo 12/29/15 Status: Acute Current Visit: No Qualifiers: Congestive heart failure type: diastolic Congestive heart failure chronicity: acute on chronic Qualified Code(s): I50.33 - Acute on chronic diastolic (congestive) heart failure (6) Essential hypertension Status: Chronic Current Visit: Yes (7) Diabetes mellitus Status: Chronic Current Visit: Yes Qualifiers: Diabetes mellitus type: type 2 Diabetes mellitus complication status: without complication Diabetes mellitus fdc insulin use: without termite treater use Qualified Code(s): E11.9 - Type 2 diabetes mellitus without complications (8) KOBY (obstructive sleep apnea) Status: Ruled-out Current Visit: No
--- NOTE | 2016-12-08 13:06 | Cardiology Progress Note ---
I, Jazz Castaneda RN, am scribing for, and in the presence of, Bj Dailey MD 13:06. Assessment and Plan (1) Acute renal failure Status: Acute Assessment and plan: 12/08/69 No angina Her creatinine is significantly worse, still increasing Likely will get a dialysis catheter placed and then get dialysis Continue the Plavix for her coronary stents She probably has obstructive sleep apnea, but she declined getting an evaluation and treatment because she says she does not have the money I encouraged to sleep propped up to lessen the effect of her sleep apnea Hopefully this acute renal failure after contrast exposure, probably contrast induced nephropathy, will resolve with time I discussed the above with the patient. She voiced understanding and agrees with the plan. Current Visit: Yes (2) Anemia Status: Acute Current Visit: Yes (3) COPD (chronic obstructive pulmonary disease) Status: Chronic Current Visit: Yes (4) Elevated liver enzymes Status: Acute Current Visit: Yes (5) History of coronary artery stent placement Status: Chronic Current Visit: Yes (6) Hyperkalemia Status: Acute Current Visit: Yes (7) Peripheral vascular disease Status: Acute Current Visit: Yes (8) Essential hypertension Status: Chronic Current Visit: Yes (9) Coronary artery disease Status: Chronic Current Visit: Yes Qualifiers: Coronary Disease-Associated Artery/Lesion type: [place] artery [place] vs. transplanted heart: [place] heart Associated angina: with unstable angina Qualified Code(s): I25.110 - Atherosclerotic heart disease of [place] coronary artery with unstable angina pectoris (10) Diabetes mellitus Status: Chronic Current Visit: Yes Qualifiers: Diabetes mellitus type: type 2 Diabetes mellitus complication status: without complication Diabetes mellitus group home insulin use: without group home use Qualified Code(s): E11.9 - Type 2 diabetes mellitus without complications Cardiology - PN: Subj Interval history: Electric Wirer: Dr. Wu Summary: Ms. Quintana is a 61 year old female with a history of multiple medical problems including hypertension, diabetes, coronary artery disease with previous stent placement, diastolic heart failure, and COPD. Last Wednesday, the patient underwent cardiac catheterization via the right radial artery which did not show any high-grade disease in need of revascularization. She had normal left ventricular systolic function. The following day she had a CT angiogram of her lower extremities to evaluate for the source of claudication. She did have moderate to severe disease in her lower extremity vasculature which will be evaluating down the road. Patient reports that the following day she had no appetite. She did not have actual nausea or vomiting, but just anorexia. She did not eat or drink anything Wednesday or Wednesday. She went to her local emergency room complaining of abdominal pain and anorexia. There she was noted to have new onset of severe renal insufficiency with a creatinine of 7.5. Her creatinine was 1.1 on December 02, 2016. She was also noted to have moderate hyperkalemia which has been treated. The patient was transferred here for further workup and management. She was also noted to have modest elevation of her liver function tests.Gastroenterology is seeing her and working this up. The patient denies any cardiac symptoms at this time to include angina, palpitations, or heart failure symptoms. Her appetite is actually much better today and she has eaten. She did not have any abdominal pain, nausea, or vomiting. She denies any gastrointestinal blood loss. It appears that she has a contrast-induced nephropathy, which may be exacerbated by subsequent anorexia and poor p.o. intake. The etiology of the LFT abnormalities is somewhat unclear but workup is underway. She had venous Doppler that was negative for DVT in bilateral lower extremities. December 08, 2016: Ms. Quintana seen this morning and denies any chest pain or shortness of breath. She does complain of extreme weakness and reports this is worse than on admission. Blood pressures have ended up since admission, this morning 148/94. Oxygen is in use via nasal cannula with O2 sat in the low 90s on 2 L. Her potassium has improved since yesterday. She was given Kayexalate yesterday for potassium of 5.8, this morning it is 5.2. Creatinine this morning is 9.10, nephrology is seeing her. Her sodium and liver enzymes have also improved since admission. quality assurance monitor final currently shows sinus rhythm with heart rates in the 70s. She had abdominal arterial study ultrasound done this morning that showed patent portal and hepatic veins with proper directional flow. Exam (Progress Note) - Constitutional Vitals: Period Temp Pulse Resp BP Sys/Quach Pulse Ox Last 24 Hr 97.1 F-98.0 F 61-74 17-72 119-148/52-94 90-92 General appearance: no acute distress, morbidly obese - Head Head exam: Absent: abrasion, hematoma - Eye Eye exam: Absent: periorbital swelling, laceration to eyelids Pupils: Present: MARY JANE - Neck Neck exam: Absent: lymphadenopathy, tenderness - Respiratory Respiratory exam: Present: clear to auscultation bilaterally, other (Oxygen in use via nasal cannula). Absent: accessory muscle use, chest wall tenderness - Cardiovascular Cardiovascular exam: Present: regular rate and rhythm, systolic murmur - GI/Abdominal GI/Abdominal exam: Present: normal bowel sounds, soft. Absent: distended, tenderness - Extremities Exam Extremities exam: Absent: calf tenderness, edema - Neurological Exam Neurological exam: Present: alert, oriented X3 - Psychiatric Psychiatric exam: Present: normal affect, normal mood - Skin Skin exam: Present: warm, dry Result/EKG - Labs CBC & BMP: 12/06/16 17:12 12/08/16 04:52 Lab Results: I have reviewed the past 24 hour labs Labs: Laboratory Results - last 24 hr 12/07/16 12/07/16 12/07/16 07:54 11:58 14:33 ABG pH ABG pCO2 ABG pO2 ABG HCO3 ABG Total CO2 ABG O2 Saturation ABG Base Excess Sodium 129 L Potassium 5.8 H Chloride 93 L Carbon Dioxide 25 Anion Gap 16.8 H BUN 90 H Creatinine 9.30 H GFR Calculation 5 BUN/Creatinine Ratio 9.00 Glucose 158 H POC Glucose 171 H 169 H Calculated Osmolality 288.9 Calcium 7.7 L Phosphorus Magnesium Total Bilirubin AST ALT Alkaline Phosphatase Total Protein Albumin Globulin Albumin/Globulin Ratio 12/07/16 12/07/16 12/07/16 14:53 15:01 19:55 ABG pH 7.247 L ABG pCO2 50.7 H ABG pO2 49.2 L ABG HCO3 19.8 L ABG Total CO2 20.9 L ABG O2 Saturation 78.6 L ABG Base Excess -5.3 L Sodium Potassium Chloride Carbon Dioxide Anion Gap BUN Creatinine GFR Calculation BUN/Creatinine Ratio Glucose POC Glucose 233 H 127 H Calculated Osmolality Calcium Phosphorus Magnesium Total Bilirubin AST ALT Alkaline Phosphatase Total Protein Albumin Globulin Albumin/Globulin Ratio 12/08/16 12/08/16 12/08/16 04:52 04:52 04:52 ABG pH ABG pCO2 ABG pO2 ABG HCO3 ABG Total CO2 ABG O2 Saturation ABG Base Excess Sodium 132 L 131 L 131 L Potassium 5.3 H 5.2 H 5.2 H Chloride 95 L 95 L 95 L Carbon Dioxide 22 23 23 Anion Gap 20.3 H 18.2 H 18.2 H BUN 93 H 92 H 93 H Creatinine 9.00 H 9.00 H 9.10 H GFR Calculation 5 5 5 BUN/Creatinine Ratio 10.00 10.00 10.00 Glucose 135 H 135 H 136 H POC Glucose Calculated Osmolality 294.5 291.7 292.7 Calcium 7.7 L 7.6 L 7.6 L Phosphorus 8.5 H 8.2 H Magnesium 2.7 H Total Bilirubin 0.70 AST 144 H ALT 450 H Alkaline Phosphatase 101 Total Protein 5.8 L Albumin 2.9 L 2.8 L Globulin 2.9 Albumin/Globulin Ratio 1.0 L 12/08/16 07:35 ABG pH ABG pCO2 ABG pO2 ABG HCO3 ABG Total CO2 ABG O2 Saturation ABG Base Excess Sodium Potassium Chloride Carbon Dioxide Anion Gap BUN Creatinine GFR Calculation BUN/Creatinine Ratio Glucose POC Glucose 146 H Calculated Osmolality Calcium Phosphorus Magnesium Total Bilirubin AST ALT Alkaline Phosphatase Total Protein Albumin Globulin Albumin/Globulin Ratio - Diagnostic Findings Procedure: Chest x-ray: report reviewed by me - EKG EKG results: interpreted by me EKG shows: sinus rhythm IAshlie Dale, MD, personally performed the services described in this documentation, ascribed by Jazz Castaneda RN in my presence, and it is both accurate and complete 306 .
--- NOTE | 2016-12-08 14:37 | Gastrointestinal Progress Note ---
Assessment and Plan (1) Elevated liver enzymes Status: Acute Assessment and plan: This patient had previous lab work done in February 2016 which was essentially normal. I suspect that her hepatitis C is likely a long-term illness possibly associated with her cirrhosis from alcohol exposure. She has discontinued drinking many years ago, the hepatitis C may be active and participating to some degree, but likely I suspect there is some ischemia that is playing into her current elevated liver function tests. The transaminases are improving far too quickly for this to be due to autoimmune or hemochromatosis or other types of drug induced/metabolic/toxic changes. Tylenol level was normal but this does not mean that she was not exposed earlier leading up to her current level of illness. Unfortunately at this point there is little to do, she is already improving spontaneously with supportive care. We need to avoid hypotension and recheck her transaminase levels and other 4 weeks, as an outpatient when you see fit. Current Visit: Yes (2) Anemia Status: Acute Assessment and plan: Patient is not experiencing any melena or bright red blood per rectum. She had undergone both EGD and colonoscopy by myself back in late December 2015. At that time she had an upper endoscopy which showed shallow erosions in the prepyloric region thought secondary to NSAID use as well as some antritis. Helicobacter pylori was negative the colonoscopy done on 12/31/15 demonstrated a very large villous polyp at 18 cm in the sigmoid colon that was removed by snare. Patient's hematocrit at that time was about 34.5%. She subsequently gone on to require cardiac stenting. It was felt that she was going to need a repeat colonoscopy but given her current circumstances would likely put this off for another 2 years this was a villous polyp. No lower GI bleeding source was discovered. Current Visit: Yes (3) Personal history of colonic polyps Status: Acute Assessment and plan: Again the patient had a fairly significant sizable polyp there was villous in pathology that was noted in the sigmoid region. This will require repeat colonoscopy in 3 years. Current Visit: Yes (4) Hepatitis C Status: Acute Assessment and plan: The patient does have elevations in her transaminases that I suspect are probably more likely due to ischemia or some septic process rather than hepatitis C and alcoholic cirrhosis which she does have evidence of on ultrasound/CT scanning. We will need to follow her liver function tests up later and obtain a hepatitis C genotype and viral load to see where she is at now. She may have been wanted that rare 20% of individuals that have 50 to the virus especially given her normal transaminases in February 2016. If treatment is anticipated we may wish to obtain a biopsy of the liver in order to confirm the cirrhosis. If she has hepatitis genotype 1A or B she may require 24 weeks of Harvoni therapy as opposed to the current 8 for noncirrhotic patient's with low viral loads. Laboratories have kindly been obtained by Dr. Pelaez to this end. She does not have any hemochromatosis Michelle or alpha-1 antitrypsin deficiency or autoimmune hepatitis. We are awaiting the hepatitis C genotype and viral load. Current Visit: Yes Gastroenterology - PN: Subj Interval history: Patient states that her appetite is rather poor however she is managed to eat some of her nutrition, she is overall feeling somewhat better and her kidneys start to function to the degree that it is not thought that she will require dialysis. I suspect she had some hypotension of some type or no interruption of her blood supply to her kidneys and liver at the very least given the elevation in the transaminases as well as the BUN and creatinine seen in this patient. Her baseline transaminases are quite unremarkable despite the fact that she likely has underlying hepatitis C. With an ALT that increased from 26 on 02/16/16 up to 668 at the start of this admission on 12/06/16, similarly the AST has increased from 24 on 02/16/[address] up to 323 at the start of this admission. There was not a con commitment increase in alkaline phosphatase or bilirubin making me suspect an ischemic process since the Tylenol level was normal and the patient has not been eating well mushrooms. Additionally, she no longer drinks any alcohol, and has not really been binge drinking since the year 1999. Exam (Progress Note) - Constitutional Vitals: Period Temp Pulse Resp BP Sys/Quach Pulse Ox Last 24 Hr 97.1 F-98.0 F 66-74 18-20 121-177/52-94 90-93 General appearance: mild distress, other (This patient does appear confused but may have just been awakened from sleep. Ammonia level is only 14) - Head Head exam: Present: normocephalic - Eye Eye exam: Present: EOMI. Absent: scleral icterus - Respiratory Respiratory exam: Present: clear to auscultation bilaterally - Cardiovascular Cardiovascular exam: Present: regular rate and rhythm. Absent: bradycardia - GI/Abdominal GI/Abdominal exam: Present: normal bowel sounds, distended, tenderness (This is in the right upper quadrant. The patient abdominal ultrasound done earlier this admission did show some hepatomegaly at 18 cm and splenomegaly as well. Spleen tip is palpable on physical exam. The patient is somewhat obese, is difficult to tell if there is gross ascites or just obesity present). Absent: ascites, guarding, rebound Results - Labs CBC & BMP: 12/06/16 17:12 12/08/16 04:52
[2016-12-09] MEDS: BUDESONIDE/FORMOTEROL 160-4.5 INHALER 6 GM INH SCH ×3 (03:42→20:45)
[2016-12-09 04:18] LABS: Basophils % 0.5 % (0.0-0.8); Eosinophils # 0.1 10*3/uL (0.0-0.87); Eosinophils % 1.7 % (0.00-10.9); Hemoglobin 8.6 GM/DL (12.0-16.0); Immature Granulocytes % 0.7 %; Immature Granulocytes Absolute 0.04 #; Lymphocytes % 16.6 % (21.3-54.2); Mean Corpuscular HGB Conc 31.9 GM/DL (32-36); Mean Corpuscular Hemoglobin 24 PG (27-34); Mean Corpuscular Volume 76.1 FL (87-102); Mean Platelet Volume 10.2 FL (9.6-12.0); Monocytes # 0.4 10*3/uL (0.11-0.8); Monocytes % 6.9 % (1.7-12.7); Neutrophils # 4.4 10*3/uL (1.4-7.4); Neutrophils % 73.6 % (38.7-73.9); Platelet Count 313 T/CUMM (130-400); Red Blood Count 3.55 MC/CUMM (3.8-5.5); Red Cell Distribution Width 16.6 % (9.3-17.3); White Blood Count 5.9 T/CUMM (4-12)
[2016-12-09 04:50] LABS: Calcium 8.6 MG/DL (8.5-10.1); Magnesium 2.7 MG/DL (1.8-2.4); Osmolality,Calculated 299.8 MOS/KG (273-304); Potassium 4.9 MMOL/L (3.5-5.1)
[2016-12-09 04:51] LABS: Calcium 8.5 MG/DL (8.5-10.1); Potassium 4.9 MMOL/L (3.5-5.1)
[2016-12-09] MEDS: HEPARIN 5,000 UNIT/1 ML VIAL SUBCUT SCH ×3 (05:07→20:45)
[2016-12-09] MEDS: INSULIN LISPRO 100 UNIT/ML SUBCUT SCH ×4 (09:07→23:38)
[2016-12-09] MEDS: ACETYLCYSTEINE 600 MG CAPSULE PO SCH ×2 (09:10→20:45)
[2016-12-09] MEDS: SODIUM CHLORIDE 0.9% 1,000 ML IV SCH ×2 (09:10→23:38)
[2016-12-09] MEDS: CLOPIDOGREL 75 MG TABLET PO SCH (09:10)
[2016-12-09] MEDS: ASPIRIN EC 81 MG TABLET PO SCH (09:10)
--- NOTE | 2016-12-09 18:12 | Cardiology Progress Note ---
I, Jazz Castaneda RN, am scribing for, and in the presence of, Bj Dailey MD 18:11. Assessment and Plan (1) Acute renal failure Status: Acute Assessment and plan: Initial assessment and plan December 08, 2016: No angina Her creatinine is significantly worse, still increasing Likely will get a dialysis catheter placed and then get dialysis Continue the Plavix for her coronary stents She probably has obstructive sleep apnea, but she declined getting an evaluation and treatment because she says she does not have the money I encouraged to sleep propped up to lessen the effect of her sleep apnea Hopefully this acute renal failure after contrast exposure, probably contrast induced nephropathy, will resolve with time I discussed the above with the patient. She voiced understanding and agrees with the plan Assessment and plan December 09, 2016: Renal function is improving Continue to support Restrict fluids to prevent overload No uremic symptoms Continue cardiac meds Current Visit: Yes (2) Anemia Status: Acute Current Visit: Yes (3) COPD (chronic obstructive pulmonary disease) Status: Chronic Current Visit: Yes (4) Elevated liver enzymes Status: Acute Current Visit: Yes (5) History of coronary artery stent placement Status: Chronic Current Visit: Yes (6) Hyperkalemia Status: Acute Current Visit: Yes (7) Peripheral vascular disease Status: Acute Current Visit: Yes (8) Essential hypertension Status: Chronic Current Visit: Yes (9) Coronary artery disease Status: Chronic Current Visit: Yes Qualifiers: Coronary Disease-Associated Artery/Lesion type: [place] artery [place] vs. transplanted heart: [place] heart Associated angina: with unstable angina Qualified Code(s): I25.110 - Atherosclerotic heart disease of [place] coronary artery with unstable angina pectoris (10) Diabetes mellitus Status: Chronic Current Visit: Yes Qualifiers: Diabetes mellitus type: type 2 Diabetes mellitus complication status: without complication Diabetes mellitus jail insulin use: without pta use Qualified Code(s): E11.9 - Type 2 diabetes mellitus without complications Cardiology - PN: Subj Interval history: Contract Law Specialist: Dr. Wu Summary: Ms. Quintana is a 61 year old female with a history of multiple medical problems including hypertension, diabetes, coronary artery disease with previous stent placement, diastolic heart failure, and COPD. Last Wednesday, the patient underwent cardiac catheterization via the right radial artery which did not show any high-grade disease in need of revascularization. She had normal left ventricular systolic function. The following day she had a CT angiogram of her lower extremities to evaluate for the source of claudication. She did have moderate to severe disease in her lower extremity vasculature which will be evaluating down the road. Patient reports that the following day she had no appetite. She did not have actual nausea or vomiting, but just anorexia. She did not eat or drink anything Wednesday or Wednesday. She went to her local emergency room complaining of abdominal pain and anorexia. There she was noted to have new onset of severe renal insufficiency with a creatinine of 7.5. Her creatinine was 1.1 on December 02, 2016. She was also noted to have moderate hyperkalemia which has been treated. The patient was transferred here for further workup and management. She was also noted to have modest elevation of her liver function tests. Gastroenterology is seeing her and working this up. The patient denies any cardiac symptoms at this time to include angina, palpitations, or heart failure symptoms. Her appetite is actually much better today and she has eaten. She did not have any abdominal pain, nausea, or vomiting. She denies any gastrointestinal blood loss. It appears that she has a contrast-induced nephropathy, which may be exacerbated by subsequent anorexia and poor p.o. intake. The etiology of the LFT abnormalities is somewhat unclear but workup is underway. She had venous Doppler that was negative for DVT in bilateral lower extremities. December 08, 2016: Ms. Quintana is seen this morning and denies any chest pain or shortness of breath. She does complain of extreme weakness and reports this is worse than on admission. Blood pressures have ended up since admission, this morning 148/94. Oxygen is in use via nasal cannula with O2 sat in the low 90s on 2 L. Her potassium has improved since yesterday. She was given Kayexalate yesterday for potassium of 5.8, this morning it is 5.2. Creatinine this morning is 9.10, nephrology is seeing her. Her sodium and liver enzymes have also improved since admission. plate embosser currently shows sinus rhythm with heart rates in the 70s. She had abdominal arterial study ultrasound done this morning that showed patent portal and hepatic veins with proper directional flow. December 09, 2016: Ms. Quintana states she does feel better this morning and that she is not as tired. She denies any chest pain or shortness of breath, however she does state that her O2 sat drops down in the 80s when she is not wearing her oxygen. Her blood pressures have been elevated during the night, this morning it is 154/71. Her H&H has dropped this morning to 8.6 and 27. Her creatinine has improved to 6 with a BUN of 84. Apparently the patient has refused to wear her credit representative. Her heart rhythm sounds regular to auscultation. Exam (Progress Note) - Constitutional Vitals: Period Temp Pulse Resp BP Sys/Quach Pulse Ox Last 24 Hr 97.1 F-98.3 F 72-87 20-21 154-213/71-93 92-97 Exam: General appearance: no acute distress, morbidly obese - Head Head exam: Absent: abrasion, hematoma - Eye Eye exam: Absent: periorbital swelling, laceration to eyelids Pupils: Present: MARY JANE - Neck Neck exam: Absent: lymphadenopathy, tenderness - Respiratory Respiratory exam: Present: clear to auscultation bilaterally, other (Oxygen in use via nasal cannula). Absent: accessory muscle use, chest wall tenderness - Cardiovascular Cardiovascular exam: Present: regular rate and rhythm, systolic murmur - GI/Abdominal GI/Abdominal exam: Present: normal bowel sounds, soft. Absent: distended, tenderness - Extremities Exam Extremities exam: Absent: calf tenderness, trace edema - Neurological Exam Neurological exam: Present: alert, oriented X3 - Psychiatric Psychiatric exam: Present: normal affect, normal mood - Skin Skin exam: Present: warm, dry Result/EKG - Labs CBC & BMP: 12/09/16 03:42 12/09/16 03:42 Lab Results: I have reviewed the past 24 hour labs Labs: Laboratory Results - last 24 hr 12/08/16 12/08/16 12/08/16 11:03 15:45 20:22 WBC RBC Hgb Hct MCV MCH MCHC RDW Plt Count MPV Neut % (Auto) Lymph % (Auto) [place] % (Auto) Eos % (Auto) Baso % (Auto) Neut # (Auto) Lymph # (Auto) [place] # (Auto) Eos # (Auto) Baso # (Auto) Immature Gran % Nucleated RBC % Immature Gran # Nucleated RBCs # Immature Plt Fraction Sodium Potassium Chloride Carbon Dioxide Anion Gap BUN Creatinine GFR Calculation BUN/Creatinine Ratio Glucose POC Glucose 131 H 159 H 172 H Calculated Osmolality Calcium Magnesium 12/09/16 12/09/1612/09/17 03:42 03:42 03:42 WBC 5.9 RBC 3.55 L Hgb 8.6 L Hct 27.0 L MCV 76.1 L MCH 24 L MCHC 31.9 L RDW 16.6 Plt Count 313 MPV 10.2 Neut % (Auto) 73.6 Lymph % (Auto) 16.6 L [place] % (Auto) 6.9 Eos % (Auto) 1.7 Baso % (Auto) 0.5 Neut # (Auto) 4.4 Lymph # (Auto) 1.0 L [place] # (Auto) 0.4 Eos # (Auto) 0.1 Baso # (Auto) 0.0 Immature Gran % 0.7 Nucleated RBC % 0.0 Immature Gran # 0.04 Nucleated RBCs # 0.00 Immature Plt Fraction 0.0 Sodium 136 137 Potassium 4.9 4.9 Chloride 102 102 Carbon Dioxide 25 26 Anion Gap 13.9 13.9 BUN 86 H 84 H Creatinine 6.00 H 6.00 H GFR Calculation 9 9 BUN/Creatinine Ratio 14.00 14.00 Glucose 111 H 111 H POC Glucose Calculated Osmolality 298.0 299.8 Calcium 8.5 8.6 Magnesium 2.7 H 12/09/16 07:37 WBC RBC Hgb Hct MCV MCH MCHC RDW Plt Count MPV Neut % (Auto) Lymph % (Auto) [place] % (Auto) Eos % (Auto) Baso % (Auto) Neut # (Auto) Lymph # (Auto) [place] # (Auto) Eos # (Auto) Baso # (Auto) Immature Gran % Nucleated RBC % Immature Gran # Nucleated RBCs # Immature Plt Fraction Sodium Potassium Chloride Carbon Dioxide Anion Gap BUN Creatinine GFR Calculation BUN/Creatinine Ratio Glucose POC Glucose 109 H Calculated Osmolality Calcium Magnesium Ashlie Wilkinson Dale, MD, personally performed the services described in this documentation, ascribed by Jazz Castaneda RN in my presence, and it is both accurate and complete .
--- NOTE | 2016-12-09 19:01 | Nephrology Progress Note ---
Nephrology - PN: Subj Interval history: She denies shortness of breath or chest pain. Exam (PN)-Nephrology - Vital Signs Vital signs: Period Temp Pulse Resp BP Sys/Quach Pulse Ox Last 24 Hr 97.1 F-98.3 F 75-87 20-20 154-176/71-93 92-97 Exam: Gen.: Alert and oriented x3. ENT: Pupils equal round reactive to light. EOMs intact. Mucous membranes moist. Neck: Supple. No JVD or bruit. Cardiovascular: Regular rate and rhythm. No murmur rub or gallop Lungs: Clear Abdomen: Soft. Nontender. Positive bowel sounds. No organomegaly Extremities: 1+ edema - Lab 12/09/16 03:42 12/09/16 03:42 Most recent lab results ABG pH 7.247 (7.35-7.45) L 12/07/16 15:01 ABG pCO2 50.7 MM HG (35-48) H 12/07/16 15:01 ABG pO2 49.2 MM HG (80-95) L 12/07/16 15:01 ABG HCO3 19.8 MMOL/L (20-26) L 12/07/16 15:01 ABG O2 Saturation 78.6 % (95-100) L 12/07/16 15:01 Calcium 8.5 MG/DL (8.5-10.1) 12/09/16 03:42 Phosphorus 8.5 MG/DL (2.5-4.9) H 12/08/16 04:52 Magnesium 2.7 MG/DL (1.8-2.4) H 12/09/16 03:42 Assessment and Plan (1) Acute renal failure Status: Acute Assessment and plan: 61-year-old woman with: * ARF. Renal function is improving. Urine output has not been recorded as ordered * Hyperkalemia. Improved * Elevated liver enzymes. Possible cirrhosis. * Diabetes mellitus * Hypertension * Sleep apnea * CAD Current Visit: Yes (2) Anemia Status: Acute Current Visit: Yes (3) Elevated liver enzymes Status: Acute Current Visit: Yes (4) Hyperkalemia Status: Acute Current Visit: Yes (5) Congestive heart failure Problem details: EF 60% per echo 12/29/15 Status: Acute Current Visit: No Qualifiers: Congestive heart failure type: diastolic Congestive heart failure chronicity: acute on chronic Qualified Code(s): I50.33 - Acute on chronic diastolic (congestive) heart failure (6) Essential hypertension Status: Chronic Current Visit: Yes (7) Diabetes mellitus Status: Chronic Current Visit: Yes Qualifiers: Diabetes mellitus type: type 2 Diabetes mellitus complication status: without complication Diabetes mellitus senior living insulin use: without truck terminal manager use Qualified Code(s): E11.9 - Type 2 diabetes mellitus without complications (8) KOBY (obstructive sleep apnea) Status: Ruled-out Current Visit: No
--- NOTE | 2016-12-09 21:31 | Gastrointestinal Progress Note ---
Assessment and Plan (1) Elevated liver enzymes Status: Acute Assessment and plan: This patient had previous lab work done in February 2016 which was essentially normal. I suspect that her hepatitis C is likely a long-term illness possibly associated with her cirrhosis from alcohol exposure. She has discontinued drinking many years ago, the hepatitis C may be active and participating to some degree, but likely I suspect there is some ischemia that is playing into her current elevated liver function tests. The transaminases are improving far too quickly for this to be due to autoimmune or hemochromatosis or other types of drug induced/metabolic/toxic changes. Tylenol level was normal but this does not mean that she was not exposed earlier leading up to her current level of illness. Unfortunately at this point there is little to do, she is already improving spontaneously with supportive care. We need to avoid hypotension and recheck her transaminase levels and other 4 weeks, as an outpatient when you see fit. 12/09/16--The patient is likely to have hepatitis C in addition that is active. She is likely going to need a liver biopsy to see with activity and fibrosis level is in her liver prior to consideration of potential treatment of her hepatitis C. She wishes to pursue this before her discharge in order to get this done while she is here in the hospital instead of waiting to do this down the road. Given the changes in her liver function tests, this might be helpful. The patient also revealed the fact that she had been on doxycycline as an outpatient due to an exposure to a "tick bite", and this might be a hepatotoxin as well potentially. Liver function tests are going to be repeated tomorrow. Unfortunately with the patient on both aspirin and Plavix at this time she cannot have a liver biopsy as we have discussed today. This will have to wait until she can come off these medications as an outpatient in the future. We will continue to watch her hematocrit at this point as well. This will allow us time to see whether or not her hepatitis C has actual viral replication and to what degree this is occurring. She will likely need 8-24 weeks of treatment with oral medications depending on the genotype and level of fibrosis/cirrhosis seen in the biopsy down the road. Current Visit: Yes (2) Anemia Status: Acute Assessment and plan: Patient is not experiencing any melena or bright red blood per rectum. She had undergone both EGD and colonoscopy by myself back in late December 2015. At that time she had an upper endoscopy which showed shallow erosions in the prepyloric region thought secondary to NSAID use as well as some antritis. Helicobacter pylori was negative the colonoscopy done on 12/31/15 demonstrated a very large villous polyp at 18 cm in the sigmoid colon that was removed by snare. Patient's hematocrit at that time was about 34.5%. She subsequently gone on to require cardiac stenting. It was felt that she was going to need a repeat colonoscopy but given her current circumstances would likely put this off for another 2 years this was a villous polyp. No lower GI bleeding source was discovered. 12/09/16--the patient's hematocrit is slowly drifted down during the hospitalization and is currently dropped from 34.5% down to 27.0%. If he drops much further we may have to consider holding Plavix and/or transfusion. We may also have to consider capsule endoscopy to look for small bowel sites of blood loss. Current Visit: Yes (3) Personal history of colonic polyps Status: Acute Assessment and plan: Again the patient had a fairly significant sizable polyp there was villous in pathology that was noted in the sigmoid region. This will require repeat colonoscopy in 3 years. 12/09/16-- Colonoscopy in 3 years as noted above. Current Visit: Yes (4) Hepatitis C Status: Acute Assessment and plan: The patient does have elevations in her transaminases that I suspect are probably more likely due to ischemia or some septic process rather than hepatitis C and alcoholic cirrhosis which she does have evidence of on ultrasound/CT scanning. We will need to follow her liver function tests up later and obtain a hepatitis C genotype and viral load to see where she is at now. She may have been wanted that rare 20% of individuals that have 50 to the virus especially given her normal transaminases in February 2016. If treatment is anticipated we may wish to obtain a biopsy of the liver in order to confirm the cirrhosis. If she has hepatitis genotype 1A or B she may require 24 weeks of Harvoni therapy as opposed to the current 8 for noncirrhotic patient's with low viral loads. Laboratories have kindly been obtained by Dr. Pelaez to this end. She does not have any hemochromatosis, nor alpha-1 antitrypsin deficiency or autoimmune hepatitis. We are awaiting the hepatitis C genotype and viral load. 12/09/16--the patient will not be able to undergo transthoracic liver biopsy due to continuation of aspirin and Plavix this admission. If the patient's liver function tests are continuing to improve, perhaps she could be discharged tomorrow if her other non-GI issues are stable. Current Visit: Yes Gastroenterology - PN: Subj Interval history: Marcia is doing very well today and in good spirits, it is likely that she is going to be found to be HCV positive with an elevated viral load. We have not done further liver testing today but this should be completed tomorrow morning. She is wanting to do all needed tests while she is here in the hospital before she has to return to work. To this end she would like to have her liver biopsy done tomorrow before she is potentially discharged on Wednesday. Exam (Progress Note) - Constitutional Vitals: Period Temp Pulse Resp BP Sys/Quach Pulse Ox Last 24 Hr 97.1 F-98.3 F 80-87 20-20 154-176/71-93 92-97 General appearance: mild distress - Head Head exam: Present: normocephalic - Eye Eye exam: Present: EOMI - Respiratory Respiratory exam: Present: clear to auscultation bilaterally. Absent: rhonchi, stridor, wheezes - Cardiovascular Cardiovascular exam: Present: regular rate and rhythm - GI/Abdominal GI/Abdominal exam: Present: normal bowel sounds, tenderness (Mild tenderness in the bilateral upper quadrant), soft. Absent: distended, guarding, rebound - Extremities Exam Extremities exam: Absent: edema - Neurological Exam Neurological exam: Present: altered (Mildly confused but otherwise appropriate) - Psychiatric Psychiatric exam: Present: normal affect, normal mood - Skin Skin exam: Present: warm Results - Labs CBC & BMP: 12/09/16 03:42 12/09/16 03:42
[2016-12-09] MEDS: METOPROLOL TARTRATE 25 MG TABLET PO SCH (23:37)
[2016-12-09] MEDS: amLODIPine 5 MG TABLET PO SCH (23:37)
[2016-12-10] MEDS: HEPARIN 5,000 UNIT/1 ML VIAL SUBCUT SCH ×3 (05:41→21:07)
[2016-12-10] MEDS: cloNIDine 0.1 MG TABLET PO PRN ×3 (06:01→18:44)
[2016-12-10 06:21] LABS: Potassium 4.8 MMOL/L (3.5-5.1); Total Protein 6.2 G/DL (6.4-8.3)
[2016-12-10] MEDS: INSULIN LISPRO 100 UNIT/ML SUBCUT SCH ×4 (08:38→21:07)
[2016-12-10] MEDS: ACETYLCYSTEINE 600 MG CAPSULE PO SCH ×2 (08:39→21:07)
[2016-12-10] MEDS: ASPIRIN EC 81 MG TABLET PO SCH (08:39)
[2016-12-10] MEDS: METOPROLOL TARTRATE 25 MG TABLET PO SCH ×2 (08:39→21:07)
[2016-12-10] MEDS: CLOPIDOGREL 75 MG TABLET PO SCH (08:39)
[2016-12-10] MEDS: amLODIPine 5 MG TABLET PO SCH (08:39)
[2016-12-10] MEDS: BUDESONIDE/FORMOTEROL 160-4.5 INHALER 6 GM INH SCH ×2 (08:40→21:08)
--- NOTE | 2016-12-10 09:14 | Hospitalist Progress Note ---
Assessment and Plan (1) Diabetes mellitus Status: Chronic Assessment and plan: Her glucose today is 118. She appears to be well controlled on her present regimen including sliding scale insulin coverage. Current Visit: Yes Qualifiers: Diabetes mellitus type: type 2 Diabetes mellitus complication status: without complication Diabetes mellitus terminal make up operator insulin use: without correction use Qualified Code(s): E11.9 - Type 2 diabetes mellitus without complications (2) Coronary artery disease Status: Chronic Assessment and plan: She has a previous history of coronary stent insertion. She is stable now with no chest pain or shortness of breath. She is being followed by cardiology. Current Visit: Yes Qualifiers: Coronary Disease-Associated Artery/Lesion type: [place] artery [place] vs. transplanted heart: [place] heart Associated angina: with unstable angina Qualified Code(s): I25.110 - Atherosclerotic heart disease of [place] coronary artery with unstable angina pectoris (3) Acute renal failure Status: Acute Assessment and plan: Her BUN and creatinine today are 52 and 2.8 respectively today. She is being followed by nephrology. She continues to receive sodium chloride 75 mL/h infusion. Current Visit: Yes Hospitalist: Subjective Interval history: Patient is doing well this morning. She has no complaints. She continues to receive intravenous sodium chloride. Her BUN and creatinine have decreased to 52 and 2.8 respectively today. Exam - Constitutional Vitals: Period Temp Pulse Resp BP Sys/Quach Pulse Ox Last 24 Hr 96.4 F-98.7 F 67-84 20-22 146-220/70-117 94-95 General appearance: normal weight, no acute distress - Neck Neck exam: Present: normal inspection - Respiratory Respiratory exam: Present: clear to auscultation bilaterally - Cardiovascular Cardiovascular exam: Present: regular rate and rhythm - GI/Abdominal GI/Abdominal exam: Present: normal bowel sounds, soft, other (Nontender with no palpable masses or hepatosplenomegaly.) - Extremities Exam Extremities exam: Present: normal inspection - Skin Skin exam: Present: normal color, warm, intact Results - Labs CBC & BMP: 12/09/16 03:42 12/10/16 05:02
[2016-12-10 11:21] LABS: Hepatitis C RNA Detect/Quant 2450000 IU/mL (Undetected)
[2016-12-10 12:21] LABS: Mitochondrial Antibody (M2) <0.1 U
[2016-12-10 13:38] LABS: Smooth Muscle Antibody Negative (Negative)
--- NOTE | 2016-12-10 14:34 | Nephrology Progress Note ---
Nephrology - PN: Subj Interval history: She is awake and alert. She denies shortness of breath or chest pain. Exam (PN)-Nephrology - Vital Signs Vital signs: Period Temp Pulse Resp BP Sys/Quach Pulse Ox Last 24 Hr 96.4 F-98.7 F 67-82 20-22 146-221/60-117 94-95 Exam: Gen.: Alert and oriented x3. ENT: Pupils equal round reactive to light. EOMs intact. Mucous membranes moist. Neck: Supple. No JVD or bruit. Cardiovascular: Regular rate and rhythm. No murmur rub or gallop Lungs: Clear Abdomen: Soft. Nontender. Positive bowel sounds. No organomegaly Extremities: 1+ edema - Lab 12/09/16 03:42 12/10/16 05:02 Most recent lab results ABG pH 7.247 (7.35-7.45) L 12/07/16 15:01 ABG pCO2 50.7 MM HG (35-48) H 12/07/16 15:01 ABG pO2 49.2 MM HG (80-95) L 12/07/16 15:01 ABG HCO3 19.8 MMOL/L (20-26) L 12/07/16 15:01 ABG O2 Saturation 78.6 % (95-100) L 12/07/16 15:01 Calcium 9.0 MG/DL (8.5-10.1) 12/10/16 05:02 Phosphorus 8.5 MG/DL (2.5-4.9) H 12/08/16 04:52 Magnesium 2.7 MG/DL (1.8-2.4) H 12/09/16 03:42 Assessment and Plan (1) Acute renal failure Status: Acute Assessment and plan: 61-year-old woman with: * ARF. Renal function significantly better. Decrease IV. Encourage p.o. fluids * Hyperkalemia. Resolved * Elevated liver enzymes. Possible cirrhosis. * Diabetes mellitus * Hypertension * Sleep apnea * CAD Current Visit: Yes (2) Anemia Status: Acute Current Visit: Yes (3) Elevated liver enzymes Status: Acute Current Visit: Yes (4) Hyperkalemia Status: Acute Current Visit: Yes (5) Congestive heart failure Problem details: EF 60% per echo 12/29/15 Status: Acute Current Visit: No Qualifiers: Congestive heart failure type: diastolic Congestive heart failure chronicity: acute on chronic Qualified Code(s): I50.33 - Acute on chronic diastolic (congestive) heart failure (6) Essential hypertension Status: Chronic Current Visit: Yes (7) Diabetes mellitus Status: Chronic Current Visit: Yes Qualifiers: Diabetes mellitus type: type 2 Diabetes mellitus complication status: without complication Diabetes mellitus mail handler equipment operator insulin use: without senior living use Qualified Code(s): E11.9 - Type 2 diabetes mellitus without complications (8) KOBY (obstructive sleep apnea) Status: Ruled-out Current Visit: No
[2016-12-10] MEDS: SODIUM CHLORIDE 0.9% 1,000 ML IV SCH ×2 (17:36→17:37)
--- NOTE | 2016-12-10 19:49 | Cardiology Progress Note ---
I, Jazz Castaneda RN, am scribing for, and in the presence of, Bj Dailey MD 19:48. Assessment and Plan (1) Acute renal failure Status: Acute Assessment and plan: Initial assessment and plan December 08, 2016: No angina Her creatinine is significantly worse, still increasing Likely will get a dialysis catheter placed and then get dialysis Continue the Plavix for her coronary stents She probably has obstructive sleep apnea, but she declined getting an evaluation and treatment because she says she does not have the money I encouraged to sleep propped up to lessen the effect of her sleep apnea Hopefully this acute renal failure after contrast exposure, probably contrast induced nephropathy, will resolve with time I discussed the above with the patient. She voiced understanding and agrees with the plan Assessment and plan December 09, 2016: Renal function is improving Continue to support Restrict fluids to prevent overload No uremic symptoms Continue cardiac meds Assessment and plan December 10, 2016: Renal function continues to improve. Blood pressure is elevated. Lisinopril and clonidine were restarted. Watch renal function with restarting the lisinopril Dr. Tank Wells may have a preference on how to treat the hypertension without adversely affecting renal function Recheck BMP in a.m. Current Visit: Yes (2) Anemia Status: Acute Current Visit: Yes (3) COPD (chronic obstructive pulmonary disease) Status: Chronic Current Visit: Yes (4) Elevated liver enzymes Status: Acute Current Visit: Yes (5) History of coronary artery stent placement Status: Chronic Current Visit: Yes (6) Hyperkalemia Status: Acute Current Visit: Yes (7) Peripheral vascular disease Status: Acute Current Visit: Yes (8) Essential hypertension Status: Chronic Current Visit: Yes (9) Coronary artery disease Status: Chronic Current Visit: Yes Qualifiers: Coronary Disease-Associated Artery/Lesion type: [place] artery [place] vs. transplanted heart: [place] heart Associated angina: with unstable angina Qualified Code(s): I25.110 - Atherosclerotic heart disease of [place] coronary artery with unstable angina pectoris (10) Diabetes mellitus Status: Chronic Current Visit: Yes Qualifiers: Diabetes mellitus type: type 2 Diabetes mellitus complication status: without complication Diabetes mellitus termite exterminator helper insulin use: without termite exterminator helper use Qualified Code(s): E11.9 - Type 2 diabetes mellitus without complications Cardiology - PN: Subj Interval history: Wreath Machine Tender: Dr. Wu Summary: Ms. Quintana is a 61 year old female with a history of multiple medical problems including hypertension, diabetes, coronary artery disease with previous stent placement, diastolic heart failure, and COPD. Last Wednesday, the patient underwent cardiac catheterization via the right radial artery which did not show any high-grade disease in need of revascularization. She had normal left ventricular systolic function. The following day she had a CT angiogram of her lower extremities to evaluate for the source of claudication. She did have moderate to severe disease in her lower extremity vasculature which will be evaluating down the road. Patient reports that the following day she had no appetite. She did not have actual nausea or vomiting, but just anorexia. She did not eat or drink anything Wednesday or Wednesday. She went to her local emergency room complaining of abdominal pain and anorexia. There she was noted to have new onset of severe renal insufficiency with a creatinine of 7.5. Her creatinine was 1.1 on December 02, 2016. She was also noted to have moderate hyperkalemia which has been treated. The patient was transferred here for further workup and management. She was also noted to have modest elevation of her liver function tests. Gastroenterology is seeing her and working this up. The patient denies any cardiac symptoms at this time to include angina, palpitations, or heart failure symptoms. Her appetite is actually much better today and she has eaten. She did not have any abdominal pain, nausea, or vomiting. She denies any gastrointestinal blood loss. It appears that she has a contrast-induced nephropathy, which may be exacerbated by subsequent anorexia and poor p.o. intake. The etiology of the LFT abnormalities is somewhat unclear but workup is underway. She had venous Doppler that was negative for DVT in bilateral lower extremities. December 08, 2016: Ms. Quintana is seen this morning and denies any chest pain or shortness of breath. She does complain of extreme weakness and reports this is worse than on admission. Blood pressures have trended up since admission, this morning 148/94. Oxygen is in use via nasal cannula with O2 sat in the low 90s on 2 L. Her potassium has improved since yesterday. She was given Kayexalate yesterday for potassium of 5.8, this morning it is 5.2. Creatinine this morning is 9.10, nephrology is seeing her. Her sodium and liver enzymes have also improved since admission. front desk monitor currently shows sinus rhythm with heart rates in the 70s. She had abdominal arterial study ultrasound done this morning that showed patent portal and hepatic veins with proper directional flow. December 09, 2016: Ms. Quintana states she does feel better this morning and that she is not as tired. She denies any chest pain or shortness of breath, however she does state that her O2 sat drops down in the 80s when she is not wearing her oxygen. Her blood pressures have been elevated during the night, this morning it is 154/71. Her H&H has dropped this morning to 8.6 and 27. Her creatinine has improved to 6 with a BUN of 84. Apparently the patient has refused to wear her surveillance monitor. Her heart rhythm sounds regular to auscultation. December 10, 2016: Ms. Quintana seen this morning sitting up in bed. She is not wearing oxygen at this time and states her breathing has improved. She says she feels better and again is not as tired. Blood pressures were elevated more throughout the night, getting as high as 220/110. Because of her kidney function, several of her blood pressure medicines were held on admission. Last night her Lopressor and lisinopril were restarted and clonidine was added as needed. Kidney function has improved with a creatinine of 2.8 this morning. She continues to refuse to wear her surveillance monitor. Exam (Progress Note) - Constitutional Vitals: Period Temp Pulse Resp BP Sys/Quach Pulse Ox Last 24 Hr 96.4 F-98.7 F 67-84 20-22 146-220/70-117 94-95 Exam: General appearance: no acute distress, morbidly obese - Head Head exam: Absent: abrasion, hematoma - Eye Eye exam: Absent: periorbital swelling, laceration to eyelids Pupils: Present: MARY JANE - Neck Neck exam: Absent: lymphadenopathy, tenderness - Respiratory Respiratory exam: Present: clear to auscultation bilaterally, other (Oxygen use intermittent). Absent: accessory muscle use, chest wall tenderness - Cardiovascular Cardiovascular exam: Present: regular rate and rhythm, systolic murmur - GI/Abdominal GI/Abdominal exam: Present: normal bowel sounds, soft. Absent: distended, tenderness - Extremities Exam Extremities exam: Absent: calf tenderness, trace edema - Neurological Exam Neurological exam: Present: alert, oriented X3 - Psychiatric Psychiatric exam: Present: normal affect, normal mood - Skin Skin exam: Present: warm, dry Result/EKG - Labs CBC & BMP: 12/09/16 03:42 12/10/16 05:02 Lab Results: I have reviewed the past 24 hour labs Labs: Laboratory Results - last 24 hr 12/06/16 12/09/16 12/09/16 11:19 11:12 15:29 Sodium Potassium Chloride Carbon Dioxide Anion Gap BUN Creatinine GFR Calculation BUN/Creatinine Ratio Glucose POC Glucose 277 H 153 H Calculated Osmolality Calcium Total Bilirubin AST ALT Alkaline Phosphatase Total Protein Albumin Globulin Albumin/Globulin Ratio Intrinsic Factor (Block Positive Intrin Factor Ab Comment See comments Hepatitis Be Antibody Negative 12/09/16 12/10/16 12/10/16 21:14 05:02 07:04 Sodium 143 Potassium 4.8 Chloride 108 H Carbon Dioxide 30 Anion Gap 9.8 BUN 52 H Creatinine 2.80 H GFR Calculation 22 BUN/Creatinine Ratio 18.00 Glucose 118 H POC Glucose 158 H 165 H Calculated Osmolality 299.0 Calcium 9.0 Total Bilirubin 1.00 AST 50 H ALT 258 H Alkaline Phosphatase 100 Total Protein 6.2 L Albumin 3.0 L Globulin 3.2 Albumin/Globulin Ratio 0.9 L Intrinsic Factor (Block Intrin Factor Ab Comment Hepatitis Be Antibody I, Bj Dailey MD, personally performed the services described in this documentation, ascribed by Jazz Castaneda RN in my presence, and it is both accurate and complete 948 .
[2016-12-11] MEDS: HEPARIN 5,000 UNIT/1 ML VIAL SUBCUT SCH ×3 (05:29→21:19)
[2016-12-11] MEDS: SODIUM CHLORIDE 0.9% 1,000 ML IV SCH ×2 (05:30→19:56)
[2016-12-11 06:57] LABS: Calcium 8.6 MG/DL (8.5-10.1); Potassium 4.8 MMOL/L (3.5-5.1)
--- NOTE | 2016-12-11 08:44 | Hospitalist Progress Note ---
Assessment and Plan (1) Diabetes mellitus Status: Chronic Assessment and plan: Her glucose today is 108. She appears to be well controlled on her present regimen including sliding scale insulin coverage. 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 She is stable now with no chest pain or shortness of breath. She is being followed by cardiology. Current Visit: Yes Qualifiers: Coronary Disease-Associated Artery/Lesion type: [place] artery [place] vs. transplanted heart: [place] heart Associated angina: with unstable angina Qualified Code(s): I25.110 - Atherosclerotic heart disease of [place] coronary artery with unstable angina pectoris (3) Acute renal failure Status: Acute Assessment and plan: Her BUN and creatinine today are 29 and 1.6 respectively today. She is being followed by nephrology. She continues to receive sodium chloride 75 mL/h infusion. Current Visit: Yes Hospitalist: Subjective Interval history: Patient is doing well with no complaints. She continues on an infusion of intravenous sodium chloride 0.9%. Her BUN and creatinine today have decreased to 29 and 1.6 respectively. She should be ready for discharge tomorrow. Exam - Constitutional Vitals: Period Temp Pulse Resp BP Sys/Quach Pulse Ox Last 24 Hr 97.0 F-98.9 F 64-75 18-22 161-221/60-96 92-97 General appearance: no acute distress - Head Head exam: Present: normal inspection - Neck Neck exam: Present: normal inspection - Respiratory Respiratory exam: Present: clear to auscultation bilaterally - Cardiovascular Cardiovascular exam: Present: regular rate and rhythm - GI/Abdominal GI/Abdominal exam: Present: normal bowel sounds, soft, other (Nontender with no palpable masses or hepatosplenomegaly.) - Extremities Exam Extremities exam: Present: normal inspection - Neurological Exam Neurological exam: Present: alert, oriented X3 - Skin Skin exam: Present: normal color, warm, intact Results - Labs CBC & BMP: 12/09/16 03:42 12/11/16 05:05
[2016-12-11] MEDS: INSULIN LISPRO 100 UNIT/ML SUBCUT SCH ×4 (09:51→21:17)
[2016-12-11] MEDS: ACETYLCYSTEINE 600 MG CAPSULE PO SCH ×2 (09:52→21:16)
[2016-12-11] MEDS: METOPROLOL TARTRATE 25 MG TABLET PO SCH (09:52)
[2016-12-11] MEDS: CLOPIDOGREL 75 MG TABLET PO SCH (09:53)
[2016-12-11] MEDS: ASPIRIN EC 81 MG TABLET PO SCH (09:54)
[2016-12-11] MEDS: BUDESONIDE/FORMOTEROL 160-4.5 INHALER 6 GM INH SCH ×2 (09:54→21:16)
[2016-12-11] MEDS: amLODIPine 5 MG TABLET PO SCH (10:17)
[2016-12-11] MEDS: CARVEDILOL 25 MG TABLET PO SCH ×2 (11:36→21:16)
--- NOTE | 2016-12-11 14:21 | Nephrology Progress Note ---
Nephrology - PN: Subj Interval history: Mental status normal. She denies shortness of breath or GI symptoms. Exam (PN)-Nephrology - Vital Signs Vital signs: Period Temp Pulse Resp BP Sys/Quach Pulse Ox Last 24 Hr 97.0 F-98.9 F 64-73 18-22 174-204/78-96 92-97 Exam: ENT: Normal Cardiovascular: Regular rate and rhythm. No murmur rub or gallop Lungs: Clear Extremities: Trace edema - Lab 12/09/16 03:42 12/11/16 05:05 Most recent lab results ABG pH 7.247 (7.35-7.45) L 12/07/16 15:01 ABG pCO2 50.7 MM HG (35-48) H 12/07/16 15:01 ABG pO2 49.2 MM HG (80-95) L 12/07/16 15:01 ABG HCO3 19.8 MMOL/L (20-26) L 12/07/16 15:01 ABG O2 Saturation 78.6 % (95-100) L 12/07/16 15:01 Calcium 8.6 MG/DL (8.5-10.1) 12/11/16 05:05 Phosphorus 8.5 MG/DL (2.5-4.9) H 12/08/16 04:52 Magnesium 2.7 MG/DL (1.8-2.4) H 12/09/16 03:42 Assessment and Plan (1) Acute renal failure Status: Acute Assessment and plan: 61-year-old woman with: * ARF. Renal function much improved. Agree with plans for discharge tomorrow if improvement continues * Hyperkalemia. Resolved * Elevated liver enzymes. Possible cirrhosis. * Diabetes mellitus * Hypertension * Sleep apnea * CAD Current Visit: Yes (2) Anemia Status: Acute Current Visit: Yes (3) Elevated liver enzymes Status: Acute Current Visit: Yes (4) Hyperkalemia Status: Acute Current Visit: Yes (5) Congestive heart failure Problem details: EF 60% per echo 12/29/15 Status: Acute Current Visit: No Qualifiers: Congestive heart failure type: diastolic Congestive heart failure chronicity: acute on chronic Qualified Code(s): I50.33 - Acute on chronic diastolic (congestive) heart failure (6) Essential hypertension Status: Chronic Current Visit: Yes (7) Diabetes mellitus Status: Chronic Current Visit: Yes Qualifiers: Diabetes mellitus type: type 2 Diabetes mellitus complication status: without complication Diabetes mellitus fdc insulin use: without fdc use Qualified Code(s): E11.9 - Type 2 diabetes mellitus without complications (8) KOBY (obstructive sleep apnea) Status: Ruled-out Current Visit: No
[2016-12-11] MEDS ORDERED: diphenhydrAMINE CAP 25 MG CAPSULE PO PRN (16:22)
[2016-12-11] MEDS: cloNIDine 0.1 MG TABLET PO PRN (17:01)
--- NOTE | 2016-12-11 17:28 | Gastrointestinal Progress Note ---
Assessment and Plan (1) Elevated liver enzymes Status: Acute Assessment and plan: This patient had previous lab work done in February 2016 which was essentially normal. I suspect that her hepatitis C is likely a long-term illness possibly associated with her cirrhosis from alcohol exposure. She has discontinued drinking many years ago, the hepatitis C may be active and participating to some degree, but likely I suspect there is some ischemia that is playing into her current elevated liver function tests. The transaminases are improving far too quickly for this to be due to autoimmune or hemochromatosis or other types of drug induced/metabolic/toxic changes. Tylenol level was normal but this does not mean that she was not exposed earlier leading up to her current level of illness. Unfortunately at this point there is little to do, she is already improving spontaneously with supportive care. We need to avoid hypotension and recheck her transaminase levels and other 4 weeks, as an outpatient when you see fit. 12/09/16--The patient is likely to have hepatitis C in addition that is active. She is likely going to need a liver biopsy to see with activity and fibrosis level is in her liver prior to consideration of potential treatment of her hepatitis C. She wishes to pursue this before her discharge in order to get this done while she is here in the hospital instead of waiting to do this down the road. Given the changes in her liver function tests, this might be helpful. The patient also revealed the fact that she had been on doxycycline as an outpatient due to an exposure to a "tick bite", and this might be a hepatotoxin as well potentially. Liver function tests are going to be repeated tomorrow. Unfortunately with the patient on both aspirin and Plavix at this time she cannot have a liver biopsy as we have discussed today. This will have to wait until she can come off these medications as an outpatient in the future. We will continue to watch her hematocrit at this point as well. This will allow us time to see whether or not her hepatitis C has actual viral replication and to what degree this is occurring. She will likely need 8-24 weeks of treatment with oral medications depending on the genotype and level of fibrosis/cirrhosis seen in the biopsy down the road. 12/11/16--Unfortunately, the patient does have active replication of her hepatitis C and she will likely need treatment with Harvoni since she has a hepatitis C genotype 1A, she has a viral load that has been measured recently is being 2.4 million international units per milliliter. She will need to get a liver biopsy done maybe a month down the road when she follows up in my office in 4-6 weeks. I am going to recheck her liver function tests one more time tomorrow as I believe she likely got some ischemic versus toxic hepatitis on top of inflammation secondary to her hepatitis C. Note that this patient also has a prior history of drinking as well. Current Visit: Yes (2) Anemia Status: Acute Assessment and plan: Patient is not experiencing any melena or bright red blood per rectum. She had undergone both EGD and colonoscopy by myself back in late December 2015. At that time she had an upper endoscopy which showed shallow erosions in the prepyloric region thought secondary to NSAID use as well as some antritis. Helicobacter pylori was negative the colonoscopy done on 12/31/15 demonstrated a very large villous polyp at 18 cm in the sigmoid colon that was removed by snare. Patient's hematocrit at that time was about 34.5%. She subsequently gone on to require cardiac stenting. It was felt that she was going to need a repeat colonoscopy but given her current circumstances would likely put this off for another 2 years this was a villous polyp. No lower GI bleeding source was discovered. 12/09/16--the patient's hematocrit is slowly drifted down during the hospitalization and is currently dropped from 34.5% down to 27.0%. If he drops much further we may have to consider holding Plavix and/or transfusion. We may also have to consider capsule endoscopy to look for small bowel sites of blood loss. 12/11/16--The patient's hematocrit was 27.0% when last checked--we will likely check this one last time before she is discharged home tomorrow to see if she will need a capsule endoscopy. She can follow-up with me in 4 weeks to 6 weeks with CBC if she appears to be stable tomorrow. Current Visit: Yes (3) Personal history of colonic polyps Status: Acute Assessment and plan: Again the patient had a fairly significant sizable polyp there was villous in pathology that was noted in the sigmoid region. This will require repeat colonoscopy in 3 years. 12/09/16-- Colonoscopy in 3 years as noted above. 12/11/16--As noted above. Current Visit: Yes (4) Hepatitis C Status: Acute Assessment and plan: The patient does have elevations in her transaminases that I suspect are probably more likely due to ischemia or some septic process rather than hepatitis C and alcoholic cirrhosis which she does have evidence of on ultrasound/CT scanning. We will need to follow her liver function tests up later and obtain a hepatitis C genotype and viral load to see where she is at now. She may have been wanted that rare 20% of individuals that have 50 to the virus especially given her normal transaminases in February 2016. If treatment is anticipated we may wish to obtain a biopsy of the liver in order to confirm the cirrhosis. If she has hepatitis genotype 1A or B she may require 24 weeks of Harvoni therapy as opposed to the current 8 for noncirrhotic patient's with low viral loads. Laboratories have kindly been obtained by Dr. Pelaez to this end. She does not have any hemochromatosis, nor alpha-1 antitrypsin deficiency or autoimmune hepatitis. We are awaiting the hepatitis C genotype and viral load. 12/09/16--the patient will not be able to undergo transthoracic liver biopsy due to continuation of aspirin and Plavix this admission. If the patient's liver function tests are continuing to improve, perhaps she could be discharged tomorrow if her other non-GI issues are stable. 12/11/16--will likely need to schedule a transthoracic liver biopsy in the future given that she has active hepatitis C viral replication with a genotype of 1 a. Whether she is a candidate for treatment depending on her pathology and her insurance. Harvoni and like medications are extremely expensive at this point in time. Current Visit: Yes Gastroenterology - PN: Subj Interval history: Patient is eating well and has no new complaints and no abdominal pain. Her hematocrit was showing a slow drift 2 days ago when last checked. It is to be checked again tomorrow before she leaves potentially. Exam (Progress Note) - Constitutional Vitals: Period Temp Pulse Resp BP Sys/Quach Pulse Ox Last 24 Hr 97.0 F-99.5 F 64-73 18-22 174-204/78-96 91-97 - Head Head exam: Present: normocephalic - Eye Eye exam: Present: EOMI - Respiratory Respiratory exam: Present: clear to auscultation bilaterally - Cardiovascular Cardiovascular exam: Present: regular rate and rhythm - GI/Abdominal GI/Abdominal exam: Present: normal bowel sounds, distended, soft. Absent: guarding, tenderness, rebound - Extremities Exam Extremities exam: Absent: edema - Neurological Exam Neurological exam: Present: alert, oriented X3 - Psychiatric Psychiatric exam: Present: normal affect, normal mood - Skin Skin exam: Present: warm, intact Results - Labs CBC & BMP: 12/09/16 03:42 12/11/16 05:05
--- NOTE | 2016-12-11 18:13 | Cardiology Progress Note ---
I, Jazz Castaneda RN, am scribing for, and in the presence of, Bj Dailey MD 18:13. Assessment and Plan (1) Acute renal failure Status: Acute Assessment and plan: Initial assessment and plan December 08, 2016: No angina Her creatinine is significantly worse, still increasing Likely will get a dialysis catheter placed and then get dialysis Continue the Plavix for her coronary stents She probably has obstructive sleep apnea, but she declined getting an evaluation and treatment because she says she does not have the money I encouraged to sleep propped up to lessen the effect of her sleep apnea Hopefully this acute renal failure after contrast exposure, probably contrast induced nephropathy, will resolve with time I discussed the above with the patient. She voiced understanding and agrees with the plan Assessment and plan December 09, 2016: Renal function is improving Continue to support Restrict fluids to prevent overload No uremic symptoms Continue cardiac meds Assessment and plan December 10, 2016: Renal function continues to improve. Blood pressure is elevated. Lisinopril and clonidine were restarted. Watch renal function with restarting the lisinopril Dr. Tank Wells may have a preference on how to treat the hypertension without adversely affecting renal function Recheck BMP in a.m. Assessment and plan December 11, 2016: Renal function is better Blood pressure continues to be high We will restart her home medication, Procardia XL 30 mg daily. Recheck BMP in a.m. Watch blood pressure. May need more therapy re-added Current Visit: Yes (2) Anemia Status: Acute Current Visit: Yes (3) COPD (chronic obstructive pulmonary disease) Status: Chronic Current Visit: Yes (4) Elevated liver enzymes Status: Acute Current Visit: Yes (5) History of coronary artery stent placement Status: Chronic Current Visit: Yes (6) Hyperkalemia Status: Acute Current Visit: Yes (7) Peripheral vascular disease Status: Acute Current Visit: Yes (8) Essential hypertension Status: Chronic Current Visit: Yes (9) Coronary artery disease Status: Chronic Current Visit: Yes Qualifiers: Coronary Disease-Associated Artery/Lesion type: [place] artery [place] vs. 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 Wu Summary: Ms. Quintana is a 61 year old female with a history of multiple medical problems including hypertension, diabetes, coronary artery disease with previous stent placement, diastolic heart failure, and COPD. Last Wednesday, the patient underwent cardiac catheterization via the right radial artery which did not show any high-grade disease in need of revascularization. She had normal left ventricular systolic function. The following day she had a CT angiogram of her lower extremities to evaluate for the source of claudication. She did have moderate to severe disease in her lower extremity vasculature which will be evaluating down the road. Patient reports that the following day she had no appetite. She did not have actual nausea or vomiting, but just anorexia. She did not eat or drink anything Wednesday or Wednesday. She went to her local emergency room complaining of abdominal pain and anorexia. There she was noted to have new onset of severe renal insufficiency with a creatinine of 7.5. Her creatinine was 1.1 on December 02, 2016. She was also noted to have moderate hyperkalemia which has been treated. The patient was transferred here for further workup and management. She was also noted to have modest elevation of her liver function tests. Gastroenterology is seeing her and working this up. The patient denies any cardiac symptoms at this time to include angina, palpitations, or heart failure symptoms. Her appetite is actually much better today and she has eaten. She did not have any abdominal pain, nausea, or vomiting. She denies any gastrointestinal blood loss. It appears that she has a contrast-induced nephropathy, which may be exacerbated by subsequent anorexia and poor p.o. intake. The etiology of the LFT abnormalities is somewhat unclear but workup is underway. She had venous Doppler that was negative for DVT in bilateral lower extremities. December 08, 2016: Ms. Quintana is seen this morning and denies any chest pain or shortness of breath. She does complain of extreme weakness and reports this is worse than on admission. Blood pressures have trended up since admission, this morning 148/94. Oxygen is in use via nasal cannula with O2 sat in the low 90s on 2 L. Her potassium has improved since yesterday. She was given Kayexalate yesterday for potassium of 5.8, this morning it is 5.2. Creatinine this morning is 9.10, nephrology is seeing her. Her sodium and liver enzymes have also improved since admission. outside sales manager currently shows sinus rhythm with heart rates in the 70s. She had abdominal arterial study ultrasound done this morning that showed patent portal and hepatic veins with proper directional flow. December 09, 2016: Ms. Qunitana states she does feel better this morning and that she is not as tired. She denies any chest pain or shortness of breath, however she does state that her O2 sat drops down in the 80s when she is not wearing her oxygen. Her blood pressures have been elevated during the night, this morning it is 154/71. Her H&H has dropped this morning to 8.6 and 27. Her creatinine has improved to 6 with a BUN of 84. Apparently the patient has refused to wear her belt changer. Her heart rhythm sounds regular to auscultation. December 10, 2016: Ms. Quintana seen this morning sitting up in bed. She is not wearing oxygen at this time and states her breathing has improved. She says she feels better and again is not as tired. Blood pressures were elevated more throughout the night, getting as high as 220/110. Because of her kidney function, several of her blood pressure medicines were held on admission. Last night her Lopressor and lisinopril were restarted and clonidine was added as needed. Kidney function has improved with a creatinine of 2.8 this morning. She continues to refuse to wear her belt changer. December 11, 2016: Ms. Quintana states she does feel better this morning. She denies any chest pain. She is using oxygen intermittently. She states she does get short of breath when she gets up. Blood pressures continue to be elevated, this morning is 198/96. Will add back her home dose of nifedipine 30 mg p.o. daily and change her metoprolol to carvedilol 25 mg twice daily. Creatinine is down to 1.60 this morning. Exam (Progress Note) - Constitutional Vitals: Period Temp Pulse Resp BP Sys/Quach Pulse Ox Last 24 Hr 97.0 F-98.9 F 64-75 18-22 161-221/60-96 92-97 Exam: General appearance: no acute distress, morbidly obese - Head Head exam: Absent: abrasion, hematoma - Eye Eye exam: Absent: periorbital swelling, laceration to eyelids Pupils: Present: MARY JANE - Neck Neck exam: Absent: lymphadenopathy, tenderness - Respiratory Respiratory exam: Present: clear to auscultation bilaterally, other (Oxygen use intermittent). Absent: accessory muscle use, chest wall tenderness - Cardiovascular Cardiovascular exam: Present: regular rate and rhythm, systolic murmur - GI/Abdominal GI/Abdominal exam: Present: normal bowel sounds, soft. Absent: distended, tenderness - Extremities Exam Extremities exam: Absent: calf tenderness, trace edema - Neurological Exam Neurological exam: Present: alert, oriented X3 - Psychiatric Psychiatric exam: Present: normal affect, normal mood - Skin Skin exam: Present: warm, dry Result/EKG - Labs CBC & BMP: 12/09/16 03:42 12/11/16 05:05 Lab Results: I have reviewed the past 24 hour labs Labs: Laboratory Results - last 24 hr 12/06/16 12/07/16 12/10/16 11:19 15:55 11:16 Sodium Potassium Chloride Carbon Dioxide Anion Gap BUN Creatinine GFR Calculation BUN/Creatinine Ratio Glucose POC Glucose 265 H Calculated Osmolality Calcium Anti-Mitochondrial Ab <0.1 Anti-Smooth Muscle Ab Negative HCV RNA Quant (PCR) [id number] A Hepatitis C Genotype 1a A HIV-1 Ab Diff Negative HIV-2 Ab Diff Indeterminate 12/10/16 12/10/16 12/11/16 15:54 19:57 05:05 Sodium 143 Potassium 4.8 Chloride 111 H Carbon Dioxide 27 Anion Gap 9.8 BUN 29 H Creatinine 1.60 H GFR Calculation 43 BUN/Creatinine Ratio 18.00 Glucose 108 H POC Glucose 191 H 215 H Calculated Osmolality 291.0 Calcium 8.6 Anti-Mitochondrial Ab Anti-Smooth Muscle Ab HCV RNA Quant (PCR) Hepatitis C Genotype HIV-1 Ab Diff HIV-2 Ab Diff 12/11/16 07:37 Sodium Potassium Chloride Carbon Dioxide Anion Gap BUN Creatinine GFR Calculation BUN/Creatinine Ratio Glucose POC Glucose 143 H Calculated Osmolality Calcium Anti-Mitochondrial Ab Anti-Smooth Muscle Ab HCV RNA Quant (PCR) Hepatitis C Genotype HIV-1 Ab Diff HIV-2 Ab Diff - Diagnostic Findings Procedure: Chest x-ray: report reviewed by me Specialty Discharge - Follow Up or Referrals Follow up with: Mat Wu MD [Physician] - Ashlie Wilkinson Dale, MD, personally performed the services described in this documentation, ascribed by Jazz Castaneda RN in my presence, and it is both accurate and complete .
[2016-12-11 20:51] LABS: IgA Serum (MAYO) 86 mg/dL (61 - 356)
[2016-12-12 05:23] LABS: Basophils % 0.6 % (0.0-0.8); Eosinophils # 0.3 10*3/uL (0.0-0.87); Eosinophils % 5.5 % (0.00-10.9); Hematocrit 27.7 VOL% (35.7-47.0); Hemoglobin 8.5 GM/DL (12.0-16.0); Immature Granulocytes % 0.2 %; Immature Granulocytes Absolute 0.01 #; Lymphocytes # 1.1 10*3/uL (1.4-4.0); Lymphocytes % 21.4 % (21.3-54.2); Mean Corpuscular HGB Conc 30.7 GM/DL (32-36); Mean Corpuscular Hemoglobin 24 PG (27-34); Mean Corpuscular Volume 78.7 FL (87-102); Mean Platelet Volume 10.3 FL (9.6-12.0); Monocytes # 0.5 10*3/uL (0.11-0.8); Neutrophils # 3.2 10*3/uL (1.4-7.4); Neutrophils % 63.3 % (38.7-73.9); Platelet Count 256 T/CUMM (130-400); Red Blood Count 3.52 MC/CUMM (3.8-5.5); Red Cell Distribution Width 16.6 % (9.3-17.3); White Blood Count 5.1 T/CUMM (4-12)
[2016-12-12] MEDS: HEPARIN 5,000 UNIT/1 ML VIAL SUBCUT SCH (05:53)
[2016-12-12 06:01] LABS: Albumin 2.6 G/DL (3.4-5.0); Bilirubin,Direct 0.11 MG/DL (0.0-0.20); Bilirubin,Indirect 0.8 MG/DL (0.0-1.0); Bilirubin,Total 0.9 MG/DL (0.2-1.0); Total Protein 5.4 G/DL (6.4-8.3)
[2016-12-12 06:10] LABS: Calcium 8.4 MG/DL (8.5-10.1); Osmolality,Calculated 286.1 MOS/KG (273-304); Potassium 4.9 MMOL/L (3.5-5.1)
--- NOTE | 2016-12-12 07:59 | Discharge Summary ---
Hospital Course - Hospital Course Hospital Course: Ms. Quintana is a 61 year old female with a history of [place] with stent placement , HTN, DM, CHF and COPD who was transferred from [facility] for acute renal failure. Ms. Quintana originally presented to [facility] with complaints of low back/pelvic pain and shortness of breath. Her work-up there was significant for ceatinine of 7.5, ALT of 769, AST of 377, hematocrit and hemoglobin of 29.8 and 8.9 respectively, Na of 130, K of 5.9, and WBC of 11.2. Previous labs performed on 03/04/16 showed a creatinine of 1.7. CT abd/pelvis wo contrast showed "Partial image cardiomegaly, trace pericardial effusion, pleural effusion , ascites, and diffuse subcutaneous infiltration. Passive atelectasis versus consolidation at right and left lower lobe adjacent to pleural effusions. Subtle nodular contour of the liver suggested...Likely retained renal cortical contrast with minimal intravascular contrast. Radiodense material within the gall bladder lumen, may represent vicarious excretion of contrast shows sludge, less likely discrete cholelithiasis. No ductal dilation..." Ms. Quintana is 4 days s/p cardiac catheterization and 3 days s/p CT of BLEs with contrast. She admits to not drinking much since the CT scan though she was instructed to do so. She is currently awake, alert and oriented and breathing more at ease while on oxygen, which she wears PRN at home. Patient was admitted to the hospital with acute renal failure. He is also noted at the time of admission to have abnormal liver function tests in addition to her abdominal pain. She was seen in consultation by nephrology, gastroenterology, and cardiology. Her creatinine increased to a maximum of 9.0. It was presumed that her acute renal failure was contrast agent induced due to the cardiac catheterization and CT angiogram. A CT scan of her abdomen demonstrated no acute abnormalities. She was treated with intravenous sodium chloride 0.9% infusion. She did well during her hospitalization. At the time of her discharge her creatinine had decreased to 1.3. Of note during her hospitalization she developed a rash secondary to adhesive tape. This problem was treated with oral Benadryl. There did not appear to be an active infection at the site on her abdomen where the tape had been applied. At the time of her discharge she was stable and eager to go home. Diagnosis - Discharge Diagnosis (1) Diabetes mellitus Status: Chronic (2) Coronary artery disease Status: Chronic (3) Acute renal failure Status: Acute (4) Elevated liver enzymes Status: Acute (5) Contrast dye induced nephropathy Status: Acute (6) Allergy to adhesive tape Status: Acute Specialty Discharge - Follow Up or Referrals Follow up with: Mat Wu MD [Physician] - Discharge Plan - Discharge Data Disposition: Disch To Home/Self Care Condition at Discharge: Stable Discharge Diet: advance to your usual diet Activity: resume usual activities as tolerated Hygiene: no restrictions - Discharge Medications New cephALEXin [Keflex] 500 mg PO Q8HR #15 capsule cloNIDine TAB [Catapres Tab] 0.1 mg PO TID #90 tablet Continue Aspirin [Ecotrin] 81 mg PO DAILY Gabapentin 300 mg PO BID Cyanocobalamin (Vitamin B-12) [B-12] 1 each PO DAILY Metformin HCl 1,000 mg PO BID #0 Atorvastatin [Lipitor] 80 mg PO BEDTIME #30 tablet Ipratropium Inhaler [Atrovent Inhaler] 2 puff INH QID PRN PRN Reason: Shortness Of Breath Amlodipine Besylate 10 mg PO DAILY Furosemide Tab [Lasix Tab] 80 mg PO DAILY Clopidogrel [Plavix] 75 mg PO DAILY #30 tablet Benzonatate 100 mg PO TID PRN PRN Reason: Cough Escitalopram [Lexapro] 10 mg PO DAILY hydrALAZINE TAB [Apresoline Tab] 25 mg PO TID W/MEALS NIFEdipine [Nifedipine ER] 30 mg PO DAILY Ipratropium Inhaler [Atrovent Inhaler] 2 puff INH Q6HR Albuterol Sulfate [Ventolin HFA] 2 puff INH Q4H PRN PRN Reason: Shortness Of Breath/Wheezing Budesonide/Formoterol 160-4.5 [Symbicort 160-4.5] 2 puff INH BID Lisinopril [Prinivil] 10 mg PO DAILY Changed Carvedilol [Coreg] 25 mg PO BID #60 tablet Discontinued Metoprolol Tartrate 25 mg PO BID - Follow Up or Referral Follow Up: Mat Wu MD [Physician] - - Forms/Instructions Exam - Constitutional Vitals: Period Temp Pulse Resp BP Sys/Quach Pulse Ox Last 24 Hr 97.0 F-99.5 F 58-73 18-22 153-203/79-96 91-98 Discharge Results Procedures and tests throughout hospitalization: Pending Orders 12/06/16 02:50 Occult Blood, Stool Routine 12/06/16 11:19 Celiac Disease Comp [place] Routine Ceruloplasmin Routine HBe Antibody, S Routine HIV-1/-2 Ab Differentiation,S Routine Intrinsic Factor Blocking Ab, Routine Mitochondrial Antibody (M2) Routine Parietal Cell Ab, IgG, S Routine Smooth Muscle Antibody Routine Labs on day of discharge: Labs from last 24 hours 12/12/16 12/12/16 12/12/16 04:38 04:38 04:38 WBC 5.1 RBC 3.52 L Hgb 8.5 L Hct 27.7 L MCV 78.7 L MCH 24 L MCHC 30.7 L RDW 16.6 Plt Count 256 MPV 10.3 Neut % (Auto) 63.3 Lymph % (Auto) 21.4 [place] % (Auto) 9.0 Eos % (Auto) 5.5 Baso % (Auto) 0.6 Neut # (Auto) 3.2 Lymph # (Auto) 1.1 L [place] # (Auto) 0.5 Eos # (Auto) 0.3 Baso # (Auto) 0.0 Immature Gran % 0.2 Nucleated RBC % 0.0 Immature Gran # 0.01 Nucleated RBCs # 0.00 Immature Plt Fraction 0.0 Sodium 142 Potassium 4.9 Chloride 111 H Carbon Dioxide 25 Anion Gap 10.9 BUN 22 H Creatinine 1.30 H GFR Calculation 56 BUN/Creatinine Ratio 16.00 Glucose 123 H POC Glucose Calculated Osmolality 286.1 Calcium 8.4 L Total Bilirubin 0.90 Direct Bilirubin 0.110 Indirect Bilirubin 0.8 AST 31 ALT 125 H Alkaline Phosphatase 75 Total Protein 5.4 L Albumin 2.6 L Ceruloplasmin Serum IgA Parietal Cell IgG Ab Celiac Disease Interp HLA-DQA1 HLA-DQB1 HLA Celiac Gene Pairs HCV RNA Quant (PCR) HIV-2 Ab Diff 12/11/16 12/11/16 12/11/16 19:12 15:15 11:34 WBC RBC Hgb Hct MCV MCH MCHC RDW Plt Count MPV Neut % (Auto) Lymph % (Auto) [place] % (Auto) Eos % (Auto) Baso % (Auto) Neut # (Auto) Lymph # (Auto) [place] # (Auto) Eos # (Auto) Baso # (Auto) Immature Gran % Nucleated RBC % Immature Gran # Nucleated RBCs # Immature Plt Fraction Sodium Potassium Chloride Carbon Dioxide Anion Gap BUN Creatinine GFR Calculation BUN/Creatinine Ratio Glucose POC Glucose 206 H 144 H 211 H Calculated Osmolality Calcium Total Bilirubin Direct Bilirubin Indirect Bilirubin AST ALT Alkaline Phosphatase Total Protein Albumin Ceruloplasmin Serum IgA Parietal Cell IgG Ab Celiac Disease Interp HLA-DQA1 HLA-DQB1 HLA Celiac Gene Pairs HCV RNA Quant (PCR) HIV-2 Ab Diff 12/11/16 12/07/16 12/06/16 07:37 15:55 11:19 WBC RBC Hgb Hct MCV MCH MCHC RDW Plt Count MPV Neut % (Auto) Lymph % (Auto) [place] % (Auto) Eos % (Auto) Baso % (Auto) Neut # (Auto) Lymph # (Auto) [place] # (Auto) Eos # (Auto) Baso # (Auto) Immature Gran % Nucleated RBC % Immature Gran # Nucleated RBCs # Immature Plt Fraction Sodium Potassium Chloride Carbon Dioxide Anion Gap BUN Creatinine GFR Calculation BUN/Creatinine Ratio Glucose POC Glucose 143 H Calculated Osmolality Calcium Total Bilirubin Direct Bilirubin Indirect Bilirubin AST ALT Alkaline Phosphatase Total Protein Albumin Ceruloplasmin Pending Serum IgA 86 Parietal Cell IgG Ab < 10.0 Celiac Disease Interp See comments HLA-DQA1 See below HLA-DQB1 See below HLA Celiac Gene Pairs No HCV RNA Quant (PCR) [id number] HIV-2 Ab Diff Indeterminate DS: Provider Date of admission: 12/06/16 01:50 Primary care physician: . No PCP Attending physician on admission: Brody Gtuierrez MD Consults: 12/06/16 01:50 Consult to Physician [CONS] Routine Comment: Consulting Provider: Mat Wu Person Notified: robert at [facility] Date Notified: 12/06/16 Time Notified: 08:24 Consult to Physician [CONS] Routine Comment: ARF Consulting Provider: Tank Smith Person Notified: dr. smith Date Notified: 12/06/16 Time Notified: 08:17 Consult to Physician [CONS] Routine Comment: Elevated liver enzymes Consulting Provider: Abelardo Corona Person Notified: dr. mendez Date Notified: 12/06/16 Time Notified: 08:20 Consult Notification Comment: SANDY ON MON. Discharging clinician: Wyatt Yanes
[2016-12-12] MEDS: SODIUM CHLORIDE 0.9% 1,000 ML IV SCH (08:20)
--- NOTE | 2016-12-12 08:34 | Nephrology Progress Note ---
Nephrology - PN: Subj Interval history: The patient is doing well. Serum creatinine is now 1.3. Plan for discharge today. Exam (PN)-Nephrology - Vital Signs Vital signs: Period Temp Pulse Resp BP Sys/Quach Pulse Ox Last 24 Hr 97.6 F-99.5 F 58-67 18-22 153-203/79-92 91-98 - General Appearance General appearance: well-developed, well-nourished EENT: ATNC Neck: supple Respiratory: clear Cardiology: no edema, regular rate, regular rhythm Gastrointestinal: normoactive bowel sounds, no tenderness Neurologic: alert and oriented x3 Musculoskeletal: no clubbing Psychiatric: mood/affect appropriate, cooperative - Lab 12/12/16 04:38 12/12/16 04:38 Most recent lab results ABG pH 7.247 (7.35-7.45) L 12/07/16 15:01 ABG pCO2 50.7 MM HG (35-48) H 12/07/16 15:01 ABG pO2 49.2 MM HG (80-95) L 12/07/16 15:01 ABG HCO3 19.8 MMOL/L (20-26) L 12/07/16 15:01 ABG O2 Saturation 78.6 % (95-100) L 12/07/16 15:01 Calcium 8.4 MG/DL (8.5-10.1) L 12/12/16 04:38 Phosphorus 8.5 MG/DL (2.5-4.9) H 12/08/16 04:52 Magnesium 2.7 MG/DL (1.8-2.4) H 12/09/16 03:42 Assessment and Plan (1) Diabetes mellitus Status: Chronic Current Visit: Yes Qualifiers: Diabetes mellitus type: type 2 Diabetes mellitus complication status: without complication Diabetes mellitus fci insulin use: without predatory animal exterminator use Qualified Code(s): E11.9 - Type 2 diabetes mellitus without complications (2) Acute renal failure Status: Resolved Assessment and plan: Renal function has recovered. Current Visit: Yes Specialty Discharge - Follow Up or Referrals Follow up with: Mat Wu MD [Physician] -
[2016-12-12] MEDS: INSULIN LISPRO 100 UNIT/ML SUBCUT SCH (08:53)
[2016-12-12] MEDS: ASPIRIN EC 81 MG TABLET PO SCH (09:29)
[2016-12-12] MEDS: CLOPIDOGREL 75 MG TABLET PO SCH (09:29)
[2016-12-12] MEDS: CARVEDILOL 25 MG TABLET PO SCH (09:29)
[2016-12-12] MEDS: ACETYLCYSTEINE 600 MG CAPSULE PO SCH (09:29)
[2016-12-12] MEDS: amLODIPine 5 MG TABLET PO SCH (09:29)
[2016-12-12] MEDS: BUDESONIDE/FORMOTEROL 160-4.5 INHALER 6 GM INH SCH (09:30)
[2016-12-12 10:59] VITALS: BP 149/82
--- NOTE | 2016-12-12 14:24 | Cardiology Progress Note ---
Assessment and Plan (1) Acute renal failure Status: Resolved Assessment and plan: Initial assessment and plan December 08, 2016: No angina Her creatinine is significantly worse, still increasing Likely will get a dialysis catheter placed and then get dialysis Continue the Plavix for her coronary stents She probably has obstructive sleep apnea, but she declined getting an evaluation and treatment because she says she does not have the money I encouraged to sleep propped up to lessen the effect of her sleep apnea Hopefully this acute renal failure after contrast exposure, probably contrast induced nephropathy, will resolve with time I discussed the above with the patient. She voiced understanding and agrees with the plan Assessment and plan December 09, 2016: Renal function is improving Continue to support Restrict fluids to prevent overload No uremic symptoms Continue cardiac meds Assessment and plan December 10, 2016: Renal function continues to improve. Blood pressure is elevated. Lisinopril and clonidine were restarted. Watch renal function with restarting the lisinopril Dr. Tank Wells may have a preference on how to treat the hypertension without adversely affecting renal function Recheck BMP in a.m. Assessment and plan December 11, 2016: Renal function is better Blood pressure continues to be high We will restart her home medication, Procardia XL 30 mg daily. Recheck BMP in a.m. Watch blood pressure. May need more therapy re-added 12/12/16 Creatinine continues to improve Blood pressure is better on current medications. May need further adjustments later Will defer to PCP or admitting physician regarding when to get flu vaccine or pneumonia vaccine. She is asking. Appointment with Dr. Alexander Wu in a few weeks From my standpoint, may return to work on 12/21/16, will defer the final decision to the PCP or to the hospitalist Thank you for allowing me to participate in this patient's care (2) Anemia Status: Acute (3) COPD (chronic obstructive pulmonary disease) Status: Chronic (4) Elevated liver enzymes Status: Acute (5) History of coronary artery stent placement Status: Chronic (6) Hyperkalemia Status: Acute (7) Peripheral vascular disease Status: Acute (8) Essential hypertension Status: Chronic (9) Coronary artery disease Status: Chronic Qualifiers: Coronary Disease-Associated Artery/Lesion type: [place] artery [place] vs. transplanted heart: [place] heart Associated angina: with unstable angina Qualified Code(s): I25.110 - Atherosclerotic heart disease of [place] coronary artery with unstable angina pectoris (10) Diabetes mellitus Status: Chronic Qualifiers: Diabetes mellitus type: type 2 Diabetes mellitus complication status: without complication Diabetes mellitus terminal computer operator insulin use: without terminal computer operator use Qualified Code(s): E11.9 - Type 2 diabetes mellitus without complications Cardiology - PN: Subj Interval history: No chest pain or shortness of breath. Exam (Progress Note) - Constitutional Vitals: Period Temp Pulse Resp BP Sys/Quach Pulse Ox Last 24 Hr 98.0 F-99.5 F 58-67 18-22 149-203/79-91 91-98 Exam: General appearance: no acute distress, morbidly obese - Head Head exam: Absent: abrasion, hematoma - Eye Eye exam: Absent: periorbital swelling, laceration to eyelids Pupils: Present: MARY JANE - Neck Neck exam: Absent: lymphadenopathy, tenderness - Respiratory Respiratory exam: Present: clear to auscultation bilaterally, other (Oxygen use intermittent). Absent: accessory muscle use, chest wall tenderness - Cardiovascular Cardiovascular exam: Present: regular rate and rhythm, systolic murmur - GI/Abdominal GI/Abdominal exam: Present: normal bowel sounds, soft. Absent: distended, tenderness - Extremities Exam Extremities exam: Absent: calf tenderness, trace edema - Neurological Exam Neurological exam: Present: alert, oriented X3 - Psychiatric Psychiatric exam: Present: normal affect, normal mood - Skin Skin exam: Present: warm, dry Result/EKG - Labs CBC & BMP: 12/12/16 04:38 12/12/16 04:38 Labs: Laboratory Results - last 24 hr 12/06/16 12/11/16 12/11/16 11:19 15:15 19:12 WBC RBC Hgb Hct MCV MCH MCHC RDW Plt Count MPV Neut % (Auto) Lymph % (Auto) [place] % (Auto) Eos % (Auto) Baso % (Auto) Neut # (Auto) Lymph # (Auto) [place] # (Auto) Eos # (Auto) Baso # (Auto) Immature Gran % Nucleated RBC % Immature Gran # Nucleated RBCs # Immature Plt Fraction Sodium Potassium Chloride Carbon Dioxide Anion Gap BUN Creatinine GFR Calculation BUN/Creatinine Ratio Glucose POC Glucose 144 H 206 H Calculated Osmolality Calcium Total Bilirubin Direct Bilirubin Indirect Bilirubin AST ALT Alkaline Phosphatase Total Protein Albumin Serum IgA 86 Parietal Cell IgG Ab < 10.0 Celiac Disease Interp See comments HLA-DQA1 See below HLA-DQB1 See below HLA Celiac Gene Pairs No 12/12/16 12/12/16 12/12/16 04:38 04:38 04:38 WBC 5.1 RBC 3.52 L Hgb 8.5 L Hct 27.7 L MCV 78.7 L MCH 24 L MCHC 30.7 L RDW 16.6 Plt Count 256 MPV 10.3 Neut % (Auto) 63.3 Lymph % (Auto) 21.4 [place] % (Auto) 9.0 Eos % (Auto) 5.5 Baso % (Auto) 0.6 Neut # (Auto) 3.2 Lymph # (Auto) 1.1 L [place] # (Auto) 0.5 Eos # (Auto) 0.3 Baso # (Auto) 0.0 Immature Gran % 0.2 Nucleated RBC % 0.0 Immature Gran # 0.01 Nucleated RBCs # 0.00 Immature Plt Fraction 0.0 Sodium 142 Potassium 4.9 Chloride 111 H Carbon Dioxide 25 Anion Gap 10.9 BUN 22 H Creatinine 1.30 H GFR Calculation 56 BUN/Creatinine Ratio 16.00 Glucose 123 H POC Glucose Calculated Osmolality 286.1 Calcium 8.4 L Total Bilirubin 0.90 Direct Bilirubin 0.110 Indirect Bilirubin 0.8 AST 31 ALT 125 H Alkaline Phosphatase 75 Total Protein 5.4 L Albumin 2.6 L Serum IgA Parietal Cell IgG Ab Celiac Disease Interp HLA-DQA1 HLA-DQB1 HLA Celiac Gene Pairs 12/12/16 07:46 WBC RBC Hgb Hct MCV MCH MCHC RDW Plt Count MPV Neut % (Auto) Lymph % (Auto) [place] % (Auto) Eos % (Auto) Baso % (Auto) Neut # (Auto) Lymph # (Auto) [place] # (Auto) Eos # (Auto) Baso # (Auto) Immature Gran % Nucleated RBC % Immature Gran # Nucleated RBCs # Immature Plt Fraction Sodium Potassium Chloride Carbon Dioxide Anion Gap BUN Creatinine GFR Calculation BUN/Creatinine Ratio Glucose POC Glucose 131 H Calculated Osmolality Calcium Total Bilirubin Direct Bilirubin Indirect Bilirubin AST ALT Alkaline Phosphatase Total Protein Albumin Serum IgA Parietal Cell IgG Ab Celiac Disease Interp HLA-DQA1 HLA-DQB1 HLA Celiac Gene Pairs Specialty Discharge - Follow Up or Referrals Follow up with: Mat Wu MD [Physician] - (6 weeks ) Abelardo Corona MD [Physician] - (Follow up in 4-6 weeks )
[2016-12-13 04:31] LABS: Ceruloplasmin 40 mg/dL (18-53)
[2016-12-14 11:37] LABS: Tissue Transglutaminase IgA Ab < 1.2 U/mL
== END 2016-12-12 10:40 | disposition home or self-care (01) | DRG 698 ==
LOC: EDBD → EDUNIT# → N.ED 23:47 → SUATTDRO 12-06 01:50 → N.EDINP 12-06 01:50 → N.2E 12-06 03:04
PROVIDERS: ADMIT Internal Medicine